=== PATIENT | female | born 1960 | race Caucasian/White ===

== ENCOUNTER → 2018-02-12 14:18 | Outpatient (CLI) | payer OTHER, SELFPAY ==
[2018-02-12 11:55] VITALS: BMI 27.3
[2018-02-12 15:18] LABS: Bacteria 0 SEEN /hpf (None Seen)
[2018-02-12 15:37] LABS: Color, Urine Yellow (Yellow); Glucose, Dipstick Normal (Normal); Ketone-Dipstick Negative (Negative); Leukocyte Esterase-Dipstick 25 /ul (Negative); Nitrite-Dipstick Negative (Negative); Occult Blood-Urine 10 /ul (Negative); Protein-Dipstick Negative (Negative); Specific Gravity, Urine 1.015 (1.002-1.030); Urine Bilirubin Dipstick Negative (Negative); Urine Clarity Clear (Clear); Urine Urobilinogen Normal (Normal)
[2018-02-12 16:10] LABS: Mucous, Urine 4+ /hpf (<or=2+)
[2018-02-12 16:15] LABS: Hyaline Cast 10-25 SEEN /lpf (0-5)
[2018-02-12 16:17] LABS: Squamous Epithelial Cells - UA 0-5 SEEN /hpf (5-10); White Blood Cells 0-5 SEEN /hpf (0-5)
[2018-02-12 16:18] LABS: Red Blood Cells-Urine 0-5 SEEN /hpf (0-5); Transitional Epithelial - Ur 0-5 SEEN /hpf (0-5)
== END ==
PROVIDERS: Family Provider Family Medicine; PCP Family Medicine; Referring Provider Physician Assistant; Visit Provider Physician Assistant
DX: R19.7 Diarrhea, unspecified (principal)
CPT/HCPCS: 81001; 87086

== ENCOUNTER → 2018-08-05 | Outpatient (CLI) | payer BC, SELFPAY ==
[2018-08-05 10:19] VITALS: BMI 27.3
[2018-08-05 12:26] LABS: Absolute Lymphocyte Count 2.34 X10^3/ul (0.83-4.51); Absolute Neutrophil Count 2.4 X10^3/uL (2.0-7.7); Basophil# 0.01 X10^3/uL; Basophil% 0.2 % (0-1); Eosinophil# 0.06 X10^3/uL; Eosinophils% 1.1 % (0-5); Hematocrit 37.9 % (37-47); Hemoglobin 12.5 g/dl (12.0-15.0); Lymphocyte # 2.34 X10^3/ul (4.0); Lymphocyte % 43.3 % (19-41); Mean Corpuscular Hgb 29.4 pg (27.0-32.0); Mean Corpuscular Volume 89.2 fL (81-99); Mean Platelet Vol. 10.4 fl (6.2-12.0); Monocyte# 0.59 X10^3/uL; Monocyte% 10.9 % (0-10); Neutrophil # 2.41 X10^3/uL (2.7-7.7); Neutrophil % 44.5 % (47-70); Platelet Count 231 K/mm3 (150-450); RBC Distribution Width SD 45.3 fl (35.1-43.9); Red Blood Count 4.25 M/mm3 (4.2-5.4); White Blood Count 5.4 K/mm3 (4.4-11.0)
[2018-08-05 12:35] LABS: POSITIVE COUNT NO; POSITIVE DIFFERENTIAL NO; POSITIVE MORPHOLOGY NO
[2018-08-05 12:46] LABS: ALB/GLOB Ratio 1.1 RATIO (0.9-2.4); AST(SGOT) 14 U/L (15-37); Alanine Aminotransfer ALT/SGPT 23 U/L (13-56); Albumin, Serum 3.9 g/dL (3.2-5.0); Alkaline Phosphatase 51 U/L (45-117); Anion Gap 4 (5-15); BUN 14 mg/dL (7-18); Calcium,Total 8.6 mg/dL (8.5-10.1); Chloride 109 mmol/L (98-107); Cholesterol 196 mg/dL (200); EST Glomerular Filtration Rate 92 mL/min (>60); Est Glom Filt Rate - Afr Amer 111 mL/min (>60); Globulin 3.4 g/dL (2.2-4.2); Glucose 99 mg/dL (74-106); High Density Lipoprotein 50 mg/dL; Potassium 3.4 mmol/L (3.5-5.1); Protein, Total 7.3 g/dL (6.4-8.2); Sodium Level 141 mmol/L (136-145); Triglycerides 88 mg/dL; Very Low Density Lipoprotein 18 mg/dL (5-40)
[2018-08-05 12:50] LABS: Hemoglobin A1c 6.1 % (4.2-6.3)
[2018-08-05 13:24] LABS: Thyroid Stim Hormone (TSH) 3.32 uIU/mL (0.358-3.74)
== END | disposition home or self-care (01) ==
LOC: BIMLAB 10:49
PROVIDERS: Family Provider Family Medicine; PCP Family Medicine; Visit Provider Nurse Practitioner Family
DX: I10 Essential (primary) hypertension (principal); Z13.0 Encounter for screening for diseases of the blood and blood-forming organs and certain disorders involving the immune mechanism
CPT/HCPCS: 36415; 80053; 80061; 83036; 84443; 85025; 86376; 86800

== ENCOUNTER → 2018-12-02 | Outpatient (CLI) | payer BC, SELFPAY ==
[2018-12-02 09:39] VITALS: BMI 27.3
--- NOTE | 2018-12-02 11:34 | EKG12_ITS ---
Test Reason : ROUTINE Blood Pressure : / mmHG Vent. Rate : 065 BPM Atrial Rate : 065 BPM P-R Int : 164 ms QRS Dur : 076 ms QT Int : 412 ms P-R-T Axes : 059 059 058 degrees QTc Int : 428 ms Normal sinus rhythm Normal ECG Confirmed by DANIEL PAYAN, STACI ([id number]), multimedia editor EVA BULLARD ([id number]) on 12/04/2018 10:59:42 AM Referred By: Andrey Sanches Confirmed By:STACI SANCHEZ MD
--- NOTE | 2018-12-02 11:45 | RAD_ITS ---
STUDY: X-RAY - CERVICAL SPINE REASON FOR EXAM: Female, 58 years old. Right shoulder pain with tingling down the right arm. TECHNIQUE: 2 view(s) of the cervical spine were obtained. COMPARISON: None FINDINGS: There are degenerative changes of the anterior atlantoaxial articulation. Normal odontoid process. There is reversal of the normal cervical lordosis. There is multi-level endplate spondylosis. There is multi-level degenerative disc disease with multilevel disc space narrowing. This is more significant at C5-C6. There is minimal retrolisthesis of C5 in relation to C6 (1.2 mm). There is associated posterior osteophytosis at C5-C6. There is minimal wedging of C5 vertebral body anteriorly which may be due to old fracture. There is nonspecific bilateral apophyseal hypertrophic changes. The soft tissue structures are unremarkable. No acute fracture seen. RAD/Cerv Spine 2 or 3 Views IMPRESSION: Degenerative disease as described above. Electronically Signed: Sharona Aguilar MD at 0:57 EDT , Service support ,
[2018-12-02 14:28] LABS: Mean Corp Hgb Conc 32.6 g/dL (32-36); Mean Corpuscular Volume 92.3 fL (81-99); Mean Platelet Vol. 10.4 fl (6.2-12.0); Platelet Count 239 K/mm3 (150-450); RBC Distribution Width CV 13.2 % (11.6-14.6); RBC Distribution Width SD 44.2 fl (35.1-43.9); Red Blood Count 4.66 M/mm3 (4.2-5.4); White Blood Count 7.5 K/mm3 (4.4-11.0)
[2018-12-02 14:49] LABS: Anion Gap 6 (5-15); BUN 17 mg/dL (7-18); BUN/Creat Ratio 23.6 RATIO (10-20); Chloride 104 mmol/L (98-107); Creatinine, Serum 0.72 mg/dL (0.55-1.02); EST Glomerular Filtration Rate 89 mL/min (>60); Est Glom Filt Rate - Afr Amer 107 mL/min (>60); Glucose 109 mg/dL (74-106); Magnesium 2.5 mg/dL (1.6-2.6); Potassium 3.9 mmol/L (3.5-5.1); Sodium Level 138 mmol/L (136-145)
== END | disposition home or self-care (01) ==
PROVIDERS: Family Provider Family Medicine; PCP Family Medicine; Referring Provider Nurse Practitioner Family; Visit Provider Nurse Practitioner Family
DX: R55 Syncope and collapse (principal); M54.12 Radiculopathy, cervical region; R01.1 Cardiac murmur, unspecified
CPT/HCPCS: 36415; 72040; 80048; 83735; 85027; 93005

== ENCOUNTER → 2018-12-21 | Outpatient (CLI) | payer BC, SELFPAY ==
[2018-12-02 09:39] VITALS: BMI 27.3
--- NOTE | 2018-12-21 13:04 | ECHOD_ITS ---
Reason For Study: MURMUR Procedure This was a 2D Doppler, Color Flow transthoracic echocardiogram. Exam performed in department. Left Ventricle Normal LV size. Left ventricular systolic function is normal. The estimated ejection fraction is 60 %. Stage 2 diastolic dysfunction. No regional wall motion abnormalities noted. Right Ventricle Normal RV size. Normal systolic function. Atria Normal left atrium. Normal right atrium. Mitral Valve Normal mitral valve. Tricuspid Valve Normal tricuspid valve. Aortic Valve Normal aortic valve. Trisinus/trileaflet aortic valve. Pulmonic Valve Normal pulmonic valve. Great Vessels Normal aortic root. The pulmonary artery is normal size. Normal inferior vena cava. Pericardium/Pleural No pericardial effusion. MMode/2D Measurements & Calculations LVIDd: 4.3 cm IVSd: 0.83 cm LVOT diam: 2.0 cm LVIDs: 2.6 cm LVPWd: 0.87 cm LVOT area: 3.2 cm2 RVDd: 3.1 cm FS: 38.9 % Ao root diam: 2.6 cm LAV(MOD-bp): 60.7 ml LA A4 area: 19.2 cm2 LAV(MOD-bp) Indexed: 34.7 ml/m2 LAV(MOD-sp2): 57.7 ml LAV(MOD-sp4): 58.8 ml LA dimension(2D): 3.2 cm RA A4 area: 11.2 cm2 Time Measurements MV dec time: 0.20 sec Doppler Measurements & Calculations MV E max sreekanth: 104.9 cm/sec Lat Peak E' Sreekanth: 9.2 cm/sec Med Peak E' Sreekanth: 10.6 cm/sec MV A max sreekanth: 106.1 cm/sec E/E' lat: 11.4 E/E' med: 9.9 MV E/A: 0.99 Ao V2 max: 227.4 cm/sec LV V1 max: 137.7 cm/sec SV(LVOT): 97.1 ml Ao max P.7 mmHg LV V1 max P.6 mmHg Ao V2 mean: 150.3 cm/sec LV V1 mean P.3 mmHg Ao mean P.2 mmHg LV V1 mean: 99.2 cm/sec Ao V2 VTI: 45.3 cm LV V1 VTI: 30.0 cm MAKSIM(I,D): 2.1 cm2 MAKSIM(V,D): 2.0 cm2 PA V2 max: 110.4 cm/sec Interpretation Summary Normal LV size. Left ventricular systolic function is normal. The estimated ejection fraction is 60 %. Stage 2 diastolic dysfunction. Structurally normal valves. Ordering Physician: Andrey Sanches Referring Physician: Alberto Galeana Performed By: Hazel Steele RDCS, RVT
== END | disposition home or self-care (01) ==
PROVIDERS: Family Provider Family Medicine; PCP Family Medicine; Referring Provider Nurse Practitioner Family; Visit Provider Nurse Practitioner Family
DX: R01.1 Cardiac murmur, unspecified (principal); R55 Syncope and collapse
CPT/HCPCS: 93306

== ENCOUNTER 2018-12-30 13:18 | Outpatient (RCR) | payer BC, SELFPAY ==
[2018-12-02 09:39] VITALS: BMI 27.3
== END 2019-01-09 23:59 ==
LOC: DC 13:18
PROVIDERS: Family Provider Family Medicine; PCP Family Medicine; Visit Provider Nurse Practitioner Family
DX: Z71.3 Dietary counseling and surveillance (principal); E11.9 Type 2 diabetes mellitus without complications
CPT/HCPCS: 97802

== ENCOUNTER → 2019-01-22 12:21 | Outpatient (CLI) | payer BC, SELFPAY ==
[2019-01-05 11:28] VITALS: BMI 27.3
--- NOTE | 2019-01-22 12:23 | MRI_ITS ---
STUDY: MRI CERVICAL SPINE WITHOUT CONTRAST REASON FOR EXAM: Female, 58 years old. Neck pain, left arm pain and radiculopathy. TECHNIQUE: Standardized fat and water weighted pulse sequences were obtained in the sagittal and axial planes. COMPARISON: X-ray 12/02/2018 FINDINGS: Normal foramen magnum and brainstem-cervical cord junction. Normal craniovertebral junction. Normal anterior atlantoaxial articulation. Normal odontoid process. There is straightening of the normal cervical lordosis. Normal vertebral bodies and posterior osseous elements. C2-3: Normal endplates. Normal disc height, signal and morphology. Normal central canal and intervertebral neural foramina. C3-4: Normal endplates. Normal disc height, signal and morphology. Normal central canal and intervertebral neural foramina. C4-5: Normal endplates. Normal disc height, signal and morphology. Normal central canal and intervertebral neural foramina. C5-6: Mild broad disc osteophyte complex and focal kyphosis produces mild spinal stenosis and mild bilateral neural foraminal stenosis. C6-7: Moderate bilobed disc osteophyte complex produces moderate spinal stenosis with near abutment of the spinal cord and bilateral neural foraminal stenosis. C7-T1: Normal endplates. Normal disc height, signal and morphology. Normal central canal and intervertebral neural foramina. Normal cervical cord. Normal visualized soft tissue structures. MRI/Spine Cervical (Routine) IMPRESSION: Multilevel degenerative changes, as described above. Electronically Signed: Gilbert Herring MD at 16:40 EST Tel , Service support ,
== END ==
PROVIDERS: Family Provider Family Medicine; PCP Family Medicine; Referring Provider Family Medicine; Visit Provider Family Medicine
DX: M54.12 Radiculopathy, cervical region (principal)
CPT/HCPCS: 72141

== ENCOUNTER 2019-02-25 14:06 | Outpatient (RCR) | payer BC, SELFPAY ==
[2019-01-05 11:28] VITALS: BMI 27.3
== END 2019-02-25 23:59 | disposition home or self-care (01) ==
LOC: DC 14:06
PROVIDERS: Family Provider Family Medicine; PCP Family Medicine; Visit Provider Nurse Practitioner Family
DX: Z71.3 Dietary counseling and surveillance (principal); E11.9 Type 2 diabetes mellitus without complications
CPT/HCPCS: 97803

== ENCOUNTER → 2020-09-28 14:33 | Outpatient (CLI) | payer BC, SELFPAY ==
[2020-09-28 15:59] LABS: ALB/GLOB Ratio 1.1 RATIO (0.9-2.4); AST(SGOT) 15 U/L (15-37); Alanine Aminotransfer ALT/SGPT 26 U/L (13-56); Albumin, Serum 4.2 g/dL (3.2-5.0); Alkaline Phosphatase 64 U/L (45-117); Anion Gap 3 (5-15); BUN 10 mg/dL (7-18); BUN/Creat Ratio 15.8 RATIO (10-20); Calcium,Total 9.5 mg/dL (8.5-10.1); Chloride 104 mmol/L (98-107); Creatinine, Serum 0.63 mg/dL (0.55-1.02); EST Glomerular Filtration Rate 102 mL/min (>60); Est Glom Filt Rate - Afr Amer 124 mL/min (>60); Globulin 3.7 g/dL (2.2-4.2); Glucose 94 mg/dL (74-106); Potassium 3.6 mmol/L (3.5-5.1); Protein, Total 7.9 g/dL (6.4-8.2); Sodium Level 137 mmol/L (136-145)
== END ==
PROVIDERS: PCP Family Medicine; Referring Provider Family Medicine; Visit Provider Family Medicine
DX: I10 Essential (primary) hypertension (principal)
CPT/HCPCS: 36415; 80053

== ENCOUNTER → 2021-09-11 | Outpatient (CLI) | payer BC, SELFPAY ==
[2021-09-11 12:39] LABS: Absolute Lymphocyte Count 5.08 X10^3/uL (0.83-4.51); Basophil# 0.04 X10^3/uL; Basophil% 0.4 % (0-1); Eosinophil# 0.08 X10^3/uL; Eosinophils% 0.7 % (0-5); Hematocrit 39.6 % (37-47); Hemoglobin 13.5 g/dL (12.0-15.0); Lymphocyte # 5.08 X10^3/ul (0.83-4.51); Lymphocyte % 46.1 % (19-41); Mean Corp Hgb Conc 34.1 g/dL (32-36); Mean Corpuscular Hgb 30.2 pg (27.0-32.0); Mean Corpuscular Volume 88.6 fL (81-99); Mean Platelet Vol. 10.2 fl (6.2-12.0); Monocyte# 0.76 X10^3/uL; Monocyte% 6.9 % (0-10); NRBC Flagged by Analyzer 0 % (0-5); Neutrophil # 5.04 X10^3/uL (2.7-7.7); Neutrophil % 45.6 % (47-70); POSITIVE DIFFERENTIAL YES; Platelet Count 317 K/mm3 (150-450); RBC Distribution Width CV 12.8 % (11.6-14.6); RBC Distribution Width SD 41.5 fl (35.1-43.9); Red Blood Count 4.47 M/mm3 (4.2-5.4)
[2021-09-11 12:42] LABS: Differential Indicated SCAN CRITERIA MET
[2021-09-11 13:07] LABS: Hemoglobin A1c 6.1 % (3.8-5.6)
[2021-09-11 13:14] LABS: Differential Comment SCANNED
[2021-09-11 13:16] LABS: AST(SGOT) 13 U/L (15-37); Alanine Aminotransfer ALT/SGPT 27 U/L (13-56); Albumin, Serum 3.7 g/dL (3.2-5.0); Alkaline Phosphatase 58 U/L (45-117); Anion Gap 4 (5-15); BUN 10 mg/dL (7-18); BUN/Creat Ratio 13.3 RATIO (10-20); Calcium,Total 9.4 mg/dL (8.5-10.1); Chloride 106 mmol/L (98-107); Cholesterol 218 mg/dL (200); Creatinine, Serum 0.75 mg/dL (0.55-1.02); EST Glomerular Filtration Rate 84 mL/min (>60); Est Glom Filt Rate - Afr Amer 101 mL/min (>60); Globulin 3.7 g/dL (2.2-4.2); Glucose 116 mg/dL (74-106); High Density Lipoprotein 41 mg/dL; Protein, Total 7.4 g/dL (6.4-8.2); Sodium Level 141 mmol/L (136-145); Thyroid Stim Hormone (TSH) 2.13 uIU/mL (0.358-3.74); Triglycerides 130 mg/dL; Very Low Density Lipoprotein 26 mg/dL (5-40)
== END | disposition home or self-care (01) ==
LOC: BIMLAB 10:33
PROVIDERS: PCP Family Medicine; Visit Provider Nurse Practitioner Family
DX: Z00.00 Encounter for general adult medical examination without abnormal findings (principal); R73.03 Prediabetes
CPT/HCPCS: 36415; 80053; 80061; 83036; 84443; 85025

== ENCOUNTER → 2021-10-09 | Outpatient (CLI) | payer BC, SELFPAY ==
--- NOTE | 2021-10-09 12:55 | BI_ITS ---
MAMMOGRAPHY - BILATERAL SCREENING REASON FOR EXAM: Female, 61 years old. Routine annual screening examination. PERTINENT HISTORY: Non-contributory. TECHNIQUE: Digital bilateral breast yong (3D mammographic acquisition) in the CC and MLO projections. 2-D mediolateral oblique (MLO) and craniocaudad (CC) views of both breasts were obtained. CAD: Full Field Digital Mammography with Computer Added Detection was performed. COMPARISON: Comparison is made with prior outside examination dated 10/14/2012. FINDINGS: Breast Composition: The breasts are extremely dense, which lowers the sensitivity of mammography. There are no dominant masses or suspicious calcifications. Interval decrease in size of the previously seen 2 small nodular densities in the central and inferior aspect of the left breast suggestive of a small cyst. Stable small bilateral axillary lymph nodes. No other significant abnormalities are identified. BI/SCRN MAMM (CAD)W/YONG BILAT IMPRESSION: Stable bilateral screening mammogram. Yearly follow-up mammogram recommended. (A) ASSESSMENT CATEGORY: BIRADS Category 2: Benign. A letter regarding these results will be sent to the patient by the facility within 30 days. Approximately 10% of breast cancers are not detected by mammography. A normal mammogram should not delay biopsy of a clinically suspicious abnormality. [id number] Electronically Signed: Jose Antonio Andrea MD at 8:27 EDT ,
--- NOTE | 2021-10-09 12:59 | BD_ITS ---
STUDY: DUAL ENERGY X-RAY ABSORPTIOMETRY / DXA REASON FOR EXAM: Female, 61 years old. SCREENING TECHNIQUE: Bone Mineral Density (BMD) measurements of lumbar spine and bilateral hips were obtained. COMPARISON: None. FINDINGS: Lumbar Spine (L1-L4): g/cm2 (1.124) / T-score (0.8) / Z-score (2.2) Findings are suggestive of normal bone density with a low fracture risk. Left Femur Total: g/cm2 (0.871) / T-score (-0.6) / Z-score (0.4) Left Femoral Neck: g/cm2 (0.771) / T-score (-0.7) / Z-score (0.6) Right Femur Total: g/cm2 (0.878) / T-score (-0.5) / Z-score (0.4) Right Femoral Neck: g/cm2 (0.796) / T-score (-0.5) / Z-score (0.8) BD/Dexa Bone Density Study IMPRESSION: The patient is considered normal as outlined below according to World [employer] Organization (WHO) criteria with a low fracture risk. Reference Information: The T-score is the number of standard deviations above or below the standard which is normal for young adults at their peak bone mineral density. The World Health Organization (WHO) interprets the T-scores as follows: Above -1 Normal bone density Between -1 and -2.5 Osteopenia Equal to / or below -2.5 Osteoporosis As a practical clinical guideline, osteopenia may be graded as follows: Mild -1 through -1.5 Moderate -1.6 through -2.0 Severe -2.1 through -2.4 The Z-score is the number of standard deviations above or below age-matched controls. A Z-score of less than -1.5 would be considered abnormal. References: 1. NIH Osteoporosis and Related Bone Diseases www osteo.org 2. International Society for Clinical Densitometry www iscd.org 3. National Osteoporosis Foundation www nof.org Electronically Signed: Jose Antonio Andrea MD at 13:23 EDT ,
== END | disposition home or self-care (01) ==
LOC: OPBD 12:53
PROVIDERS: PCP Family Medicine; Referring Provider Nurse Practitioner Family; Visit Provider Nurse Practitioner Family
DX: Z78.0 Asymptomatic menopausal state (principal); Z12.31 Encounter for screening mammogram for malignant neoplasm of breast
CPT/HCPCS: 77063; 77067; 77080

== ENCOUNTER → 2022-10-02 | Outpatient (CLI) | payer BC, SELFPAY ==
[2022-10-02 11:19] LABS: Absolute Lymphocyte Count 6.27 X10^3/uL (0.83-4.51); Absolute Neutrophil Count 4.7 X10^3/uL (2.0-7.7); Basophil# 0.05 X10^3/uL; Basophil% 0.4 % (0-1); Eosinophil# 0.07 X10^3/uL; Eosinophils% 0.6 % (0-5); Hemoglobin 12.6 g/dL (12.0-15.0); Lymphocyte # 6.27 X10^3/ul (0.83-4.51); Lymphocyte % 52.8 % (19-41); Mean Corp Hgb Conc 32.3 g/dL (32-36); Mean Corpuscular Hgb 28.6 pg (27.0-32.0); Mean Corpuscular Volume 88.4 fL (81-99); Mean Platelet Vol. 10.4 fl (6.2-12.0); Monocyte# 0.77 X10^3/uL; Monocyte% 6.5 % (0-10); NRBC Flagged by Analyzer 0 % (0-5); Neutrophil # 4.68 X10^3/uL (2.7-7.7); Neutrophil % 39.4 % (47-70); POSITIVE DIFFERENTIAL YES; Platelet Count 232 K/mm3 (150-450); RBC Distribution Width CV 13.2 % (11.6-14.6); RBC Distribution Width SD 43.2 fl (35.1-43.9); Red Blood Count 4.41 M/mm3 (4.2-5.4); White Blood Count 11.9 K/mm3 (4.4-11.0)
[2022-10-02 11:26] LABS: Differential Indicated SCAN CRITERIA MET
[2022-10-02 12:13] LABS: ALB/GLOB Ratio 1.1 RATIO (0.9-2.4); AST(SGOT) 13 U/L (15-37); Alanine Aminotransfer ALT/SGPT 18 U/L (13-56); Albumin, Serum 3.8 g/dL (3.2-5.0); Alkaline Phosphatase 69 U/L (45-117); Anion Gap 4 (5-15); BUN 10 mg/dL (7-18); BUN/Creat Ratio 14.6 RATIO (10-20); Calcium,Total 9.1 mg/dL (8.5-10.1); Chloride 109 mmol/L (98-107); Cholesterol 255 mg/dL (200); Creatinine, Serum 0.68 mg/dL (0.55-1.02); EST Glomerular Filtration Rate 93 mL/min (>60); Est Glom Filt Rate - Afr Amer 112 mL/min (>60); Globulin 3.6 g/dL (2.2-4.2); Glucose 99 mg/dL (74-106); High Density Lipoprotein 51 mg/dL; Potassium 3.9 mmol/L (3.5-5.1); Protein, Total 7.4 g/dL (6.4-8.2); Sodium Level 140 mmol/L (136-145); Thyroid Stim Hormone (TSH) 3.34 uIU/mL (0.358-3.74); Triglycerides 86 mg/dL; Very Low Density Lipoprotein 17 mg/dL (5-40)
== END | disposition home or self-care (01) ==
LOC: LAB 10:52
DX: Z00.00 Encounter for general adult medical examination without abnormal findings (principal)
CPT/HCPCS: 36415; 80053; 80061; 84443; 85025

== ENCOUNTER → 2022-10-16 | Outpatient (CLI) | payer BC, SELFPAY ==
--- NOTE | 2022-10-16 12:20 | BI_ITS ---
MAMMOGRAPHY - BILATERAL SCREENING REASON FOR EXAM: Female, 62 years old. Routine annual screening examination. PERTINENT HISTORY: Non-contributory. TECHNIQUE: Digital bilateral breast yong (3D mammographic acquisition) in the CC and MLO projections. 2-D mediolateral oblique (MLO) and craniocaudad (CC) views of both breasts were obtained. CAD: Full Field Digital Mammography with Computer Added Detection was performed. COMPARISON: Comparison is made with prior study dated October 09, 2021. FINDINGS: Breast Composition: The breasts are extremely dense, which lowers the sensitivity of mammography. There are no dominant masses or suspicious calcifications. Stable small benign appearing bilateral axillary lymph nodes. No other significant abnormalities are identified. There has been no significant change since the prior study. BI/SCRN MAMM (CAD)W/YONG BILAT IMPRESSION: Stable bilateral screening mammogram. Yearly follow-up mammogram recommended. (A) ASSESSMENT CATEGORY: BIRADS Category 2: Benign. A letter regarding these results will be sent to the patient by the facility within 30 days. Approximately 10% of breast cancers are not detected by mammography. A normal mammogram should not delay biopsy of a clinically suspicious abnormality. [id number] Electronically Signed: Jose Antonio Andrea MD at 13:14 EDT ,
== END | disposition home or self-care (01) ==
LOC: OPBI 12:19
PROVIDERS: Referring Provider Nurse Practitioner Family; Visit Provider Nurse Practitioner Family
DX: Z12.31 Encounter for screening mammogram for malignant neoplasm of breast (principal)
CPT/HCPCS: 77063; 77067

== ENCOUNTER → 2024-02-12 | Outpatient (CLI) | payer BC, SELFPAY ==
[2024-02-12 16:33] LABS: Absolute Lymphocyte Count 12.03 X10^3/uL (0.83-4.51); Absolute Neutrophil Count 6.5 X10^3/uL (2.0-7.7); Basophil# 0.04 X10^3/uL; Basophil% 0.2 % (0-1); Eosinophil# 0.13 X10^3/uL; Eosinophils% 0.7 % (0-5); Hematocrit 40.1 % (37-47); Hemoglobin 13.2 g/dL (12.0-15.0); Lymphocyte # 12.03 X10^3/ul (0.83-4.51); Lymphocyte % 61.4 % (19-41); Mean Corp Hgb Conc 32.9 g/dL (32-36); Mean Corpuscular Hgb 28.8 pg (27.0-32.0); Mean Corpuscular Volume 87.4 fL (81-99); Mean Platelet Vol. 9.7 fl (6.2-12.0); Monocyte# 0.83 X10^3/uL; Monocyte% 4.2 % (0-10); NRBC Flagged by Analyzer 0 % (0-5); Neutrophil # 6.52 X10^3/uL (2.7-7.7); Neutrophil % 33.3 % (47-70); POSITIVE DIFFERENTIAL YES; POSITIVE MORPHOLOGY YES; Platelet Count 249 K/mm3 (150-450); RBC Distribution Width CV 12.9 % (11.6-14.6); RBC Distribution Width SD 40.7 fl (35.1-43.9); Red Blood Count 4.59 M/mm3 (4.2-5.4); White Blood Count 19.6 K/mm3 (4.4-11.0)
[2024-02-12 16:39] LABS: Differential Indicated SCAN CRITERIA MET
[2024-02-12 17:04] LABS: Vitamin B12 344 pg/mL (211-911)
[2024-02-12 17:12] LABS: AST(SGOT) 11 U/L (15-37); Alanine Aminotransfer ALT/SGPT 17 U/L (13-56); Albumin, Serum 3.7 g/dL (3.2-5.0); Alkaline Phosphatase 96 U/L (45-117); Anion Gap 6 (5-15); BUN 9 mg/dL (7-18); BUN/Creat Ratio 13.1 RATIO (10-20); Calcium,Total 9.4 mg/dL (8.5-10.1); Chloride 108 mmol/L (98-107); Cholesterol 226 mg/dL (200); Creatinine, Serum 0.69 mg/dL (0.55-1.02); EST Glomerular Filtration Rate 92 mL/min (>60); Est Glom Filt Rate - Afr Amer 111 mL/min (>60); Globulin 3.7 g/dL (2.2-4.2); Glucose 102 mg/dL (74-106); High Density Lipoprotein 43 mg/dL; Potassium 3.9 mmol/L (3.5-5.1); Protein, Total 7.4 g/dL (6.4-8.2); Sodium Level 141 mmol/L (136-145); Triglycerides 179 mg/dL; Very Low Density Lipoprotein 36 mg/dL (5-40)
[2024-02-12 17:30] LABS: Atypical Lymphocyte 1+ %; Platelet Estimate ADEQUATE (ADEQ); Reactive Lymphocyte RARE
[2024-02-12 17:31] LABS: Anisocytosis RARE; Macrocytosis RARE; Ovalocyte RARE; Red Cell Morphology N CHROM NORMAL (NORM C&C)
[2024-02-15 21:06] LABS: Vitamin D 1,25-Dihydroxy 54.8 pg/mL (24.8-81.5)
== END | disposition home or self-care (01) ==
PROVIDERS: Referring Provider Nurse Practitioner Family; Visit Provider Nurse Practitioner Family
DX: I10 Essential (primary) hypertension (principal); E56.9 Vitamin deficiency, unspecified
CPT/HCPCS: 36415; 80053; 80061; 82607; 82652; 84443; 85025

== ENCOUNTER → 2024-03-18 | Outpatient (CLI) | payer BC, SELFPAY ==
[2024-03-18 15:26] LABS: Absolute Lymphocyte Count 14.28 X10^3/uL (0.83-4.51); Absolute Neutrophil Count 3.2 X10^3/uL (2.0-7.7); Basophil# 0.07 X10^3/uL; Basophil% 0.4 % (0-1); Eosinophil# 0.12 X10^3/uL; Eosinophils% 0.7 % (0-5); Hemoglobin 13.1 g/dL (12.0-15.0); Lymphocyte # 14.28 X10^3/ul (0.83-4.51); Lymphocyte % 78.2 % (19-41); Mean Corp Hgb Conc 32.8 g/dL (32-36); Mean Corpuscular Hgb 28.5 pg (27.0-32.0); Mean Corpuscular Volume 87.1 fL (81-99); Mean Platelet Vol. 9.9 fl (6.2-12.0); Monocyte# 0.57 X10^3/uL; Monocyte% 3.1 % (0-10); NRBC Flagged by Analyzer 0 % (0-5); Neutrophil % 17.5 % (47-70); POSITIVE DIFFERENTIAL YES; Platelet Count 222 K/mm3 (150-450); RBC Distribution Width CV 13.7 % (11.6-14.6); RBC Distribution Width SD 43.5 fl (35.1-43.9); Red Blood Count 4.59 M/mm3 (4.2-5.4); White Blood Count 18.3 K/mm3 (4.4-11.0)
[2024-03-18 15:35] LABS: Differential Indicated SCAN CRITERIA MET
[2024-03-18 15:49] LABS: T4 Free Direct 0.78 ng/dL (0.76-1.46)
[2024-03-18 21:08] LABS: Anisocytosis 1+; Atypical Lymphocyte 1+ %; Reactive Lymphocyte 1+
== END | disposition home or self-care (01) ==
LOC: VSLAB 13:59
PROVIDERS: PCP Nurse Practitioner Family
DX: D72.829 Elevated white blood cell count, unspecified (principal); R94.6 Abnormal results of thyroid function studies
CPT/HCPCS: 36415; 84436; 84439; 84443; 85025

== ENCOUNTER → 2024-08-07 | Outpatient (CLI) | payer OTHER, SELFPAY ==
--- OUTSIDE RECORDS SUMMARY | 2024-08-07 08:08 | XMS RPT_ITS | CCD ---
Author Organization [facility] Care Team Providers Care Pizza Maker Name Role Phone Martinez Galeana Unavailable Jolie Daniels Unavailable Unavailable Unavailable Unavailable Adolfo Jenkins Unavailable Unavailable Adolfo Jenkins Unavailable Unavailable Adolfo Jenkins Unavailable Unavailable Adolfo Jenkins Unavailable Unavailable Martinez Galeana Primary Care Provider Jolie Daniels Unavailable aMrtinez Galeana Primary Care Provider Jolie Daniels Unavailable Martinez Galeana DO Primary Care Provider Frances JOLLY DO WJarrell Don Unavailable [phone] Frances JOLLY DO W. Don Unavailable MARTINEZ GALEANA Admitting Unavailable CLAUDIA LANCE Attending Unavailabl e MARTINEZ GALEANA Primary Care Unavailable DIAZ TIRADO Attending Unavailable DIAZ TIRADO Admitting Unavailable MARTINEZ GALEANA Primary Care Unavailable LEILANI CUTLER Attending Unava ilable LEILANI CUTLER Admitting Unava ilable MARTINEZ GALEANA Primary Care Unavailable Dr. Martinez Galeana Primary Care Provider Dr. Martinez Galeana Referring Provider [phone] Myron JOINT FINISHER, FINA-C Alli Attending Provider Martinez Galeana DO Primary Care Provider MARTINEZ GALEANA Primary Care Unavailable Frances JOLLY DO, W. Don Unavailable [phone] Alli Sanches CNP Primary Care Provider TOD MONZON Attending Unavailable MYRON, ALLI Primary Care Unavailable TOD MONZON Admitting Unavailable MYRON, ALLI Primary Care Unavailable TOD MONZON Referring Unavailable Myron, Alli Primary Care Unavailable Assessment, Health Risk Referring Unavaila ble Assessment, Health Risk Attending Unavaila ble Tod Monzon Referring Unavailable Tod Monzon Attending Unavailable Myron, Alli Primary Care Unavailable Amrit Cunningham Attending Unavailable Myron, Alli Primary Care Unavailable Medical [place], Keyla Singh Referring Unavailable Stefanie Bravo Attending Unavailable Myron, Alli Primary Care Unavailable Myron, Alli Referring Unavailable Myron, Alli Attending Unavailable Medical [place], Keyla Singh Primary Care Unavailable Myron, Alli Primary Care Unavailable Beam VSCToy Attending Unavailable Medications Current Medications Medication Drug Class(es) Dates Sig (Normalized) Sig (Original) [id number] 200 actuat albuterol 0.09 mg/actuat metered dose inhaler (1 source) beta2-Adrenergic Agonist Start: 01-31-2017 take 2 puff(s) by inhalation every four hours as needed albuterol HFA (PROAIR HFA) 90 mcg/actuation inhaler Indications: Acute bronchitis, unspecified organism , Wheezing Inhale 2 Puffs as instructed every 4 hours as needed. 1 Inhaler 01/31/2017 Active amoxicillin 875 mg / clavulanate 125 mg oral tablet (4 sources) Penicillin-class Antibacterial Start: 09-14-2021 take 1 tablet by mouth twice daily Amoxicillin-Pot Clavulanate Active 1 TABLET PO TWICE A DAY September 14, 2021 12:00am benzonatate 200 mg oral capsule (1 source) Non-narcotic Antitussive Start: 01-31-2017 take 1 capsule by mouth three times daily as needed Benzonatate 200 mg capsule Indications: Acute bronchitis, unspecified organism Take 1 capsule by mouth three times daily as needed. 30 capsule 01/31/2017 Active hydroCHLOROthiazide 12.5 mg / lisinopril 10 mg oral tablet (20 sources) Thiazide Diuretic, Angiotensin Converting Enzyme Inhibitor Start: 06-29-2018 take 10-12.5 mg by mouth once lisinopriL-hydro chlorothiazide (PRINZIDE,ZESTOR ETIC) 10-12.5 mg per tablet Take 1 tablet by mouth daily Morning . 12/23/2020 Active Start: 10-01-2017 End: 09-11-2021 take 1 tablet by mouth once daily Lisinopril-Hydrochlorothiazide Discontin ued 1 TABLET PO DAILY February 29, 2020 10:56am September 28, 2020 2:24pm ibuprofen 600 mg oral tablet (5 sources) Nonsteroidal Anti-inflammatory Drug Start: 04-09-2021 End: 05-09-2021 take 1 tablet by mouth every six hours as needed for pain ibuprofen (ADVIL,MOTRIN) 600 MG tablet Take 1 (one) tablet (600 mg total) by mouth every 6 (six) hours as needed for pain . 30 tablet 0 04/09/2021 05/09/2021 Active Start: 11-19-2017 End: 02-12-2018 take 600 mg by mouth three times daily Ibuprofen Discontinued 600 MG PO THREE TIMES A DAY November 19, 2017 12:00am February 12, 2018 12:54pm meloxicam 15 mg oral tablet (1 source) Nonsteroidal Anti-inflammatory Drug Start: 07-19-2024 End: 07-19-2025 take 1 tablet by mouth once daily meloxicam (MOBIC) 15 MG tablet Take 1 (one) tablet (15 mg total) by mouth daily . 30 tablet 11 07/19/2024 07/19/2025 Active nitrofurantoin, macrocrystals 25 mg / nitrofurantoin, monohydrate 75 mg oral capsule (5 sources) Nitrofuran Antibacterial Start: 01-13-2024 End: 01-18-2024 take 1 capsule by mouth twice daily nitrofurantoin monohydrate and macrocrystal (MACROBID) 100 mg capsule Indications: Acute cystitis without hematuria Take 1 capsule by mouth two times a day for 5 days. 10 capsule 01/13/2024 01/18/2024 Active Start: 02-12-2018 End: 08-05-2018 take 1 capsule by mouth twice daily at mealtime Nitrofurantoin Monohyd/M-Cryst (Macrobid) 100 mg capsule Discontinued 100 MG PO TWICE A DAY February 12, 2018 1:00am August 05, 2018 10:17am must administer with a meal/food predniSONE 50 mg oral tablet (1 source) Start: 07-19-2024 take 1 tablet by mouth once daily predniSONE (DELTASONE) 50 MG tablet Take 1 (one) tablet (50 mg total) by mouth daily . 5 tablet 07/19/2024 Active sertraline 50 mg oral tablet (20 sources) Serotonin Reuptake Inhibitor Start: 09-29-2020 End: 09-11-2021 take 1 tablet by mouth once daily sertraline (ZOLOFT) 50 MG tablet Take 50 mg by mouth daily Morning . 12/29/2020 Active Start: 06-03-2017 End: 10-01-2017 take 2 tablets by mouth once daily Sertraline (Zoloft) 25 mg tablet Discontinued 50 MG PO daily June 03, 2017 12:00am October 01, 2017 10:51am Start: 06-03-2017 End: 09-28-2020 take 50 mg by mouth once daily Sertraline Discontinued 50 MG PO DAILY February 15, 2020 9:22am September 28, 2020 2:09pm Completed/Discontinued Medications Medication Drug Class(es) Dates Sig (Normalized) Sig (Original) acetaminophen with codeine (TYLENOL-CODEINE #4 ORAL) (1 source) End: 5 acetaminophen with codeine (TYLENOL-CODEINE #4 ORAL) Take by mouth . 07/19/2024 Discontinued (Patient's Request) aspirin 81 mg delayed release oral tablet (9 sources) Platelet Aggregation Inhibitor, Nonsteroidal Anti-inflammatory Drug Start: 9 End: 5 take 1 tablet by mouth once daily aspirin 81 MG EC tablet Take 81 mg by mouth daily Morning . 01/05/2019 07/19/2024 Discontinued (Discontinued by another clinician) azithromycin 250 mg oral tablet (4 sources) Macrolide Antimicrobial Start: 9 End: 9 Azithromycin Discontinued 250 MG PO daily February 12, 2018 1:00am August 05, 2018 10:17am 2 tablets today, then 1 tablet daily on days 2 through 11 cyclobenzaprine hydrochloride 10 mg oral tablet (4 sources) Muscle Relaxant Start: 8 End: 9 take 5-10 mg by mouth three times daily Cyclobenzaprine Discontinued 5 - 10 MG PO THREE TIMES A DAY November 19, 2017 12:00am February 12, 2018 12:54pm doxycycline hyclate 50 mg oral tablet (4 sources) Tetracycline-class Drug Start: 8 End: 9 take 50 mg by mouth twice daily Doxycycline Hyclate Discontinued 50 MG PO TWICE A DAY June 03, 2017 12:00am February 12, 2018 12:54pm lisinopril 2.5 mg oral tablet (4 sources) Angiotensin Converting Enzyme Inhibitor End: 2 take 1 tablet by mouth once daily lisinopril (PRINIVIL,ZESTRIL) 2.5 MG tablet Take 2.5 mg by mouth daily . 0 03/02/2021 Discontinued (Duplicate order) methylPREDNISolone 4 mg oral tablet (4 sources) Corticosteroid Start: 9 End: 9 take 1 tablet by mouth once Methylprednisolone (Medrol (Cornelius)) 4 mg tablets,dose pack Discontinued 0 PO per package directions December 02, 2018 12:00am January 05, 2019 12:27pm PO PER PKG DIR 1 ml triamcinolone acetonide 40 mg/ml injection (1 source) Corticosteroid Start: 0 End: 0 triamcinolone acetonide (KENALOG-40) injection 40 mg Problems Active Problems Problem Classification Problem Date Documented Da te Episodic/Chronic Anxiety disorders (2 sources) Mixed anxiety and depressive disorder; Translations: [Anxiety disorder, unspecified] Onset: 04-04-2021 04-04-2021 Chronic Chronic obstructive pulmonary disease and bronchiectasis (4 sources) Bronchitis; Translations: [Bronchitis, not specified as acute or chronic] 02-12-2018 Episodic Diseases of white blood cells (1 source) Elevated white blood cell count, unspecified; Translations: [Elevated white blood cell count, unspecified] Onset: 04-02-2024 Chronic Essential hypertension (12 sources) Essential hypertension; Translations: [Hypertensive disorder] Onset: 03-02-2019 03-02-2019 Chronic Genitourinary symptoms and ill-defined conditions (4 sources) Female stress incontinence; Translations: [Stress incontinence (female) (male)] Onset: 03-26-2021 Chronic Genitourinary symptoms and ill-defined conditions (5 sources) Increased frequency of urination; Translations: [Frequency of micturition] 02-12-2018 Episodic Joint disorders and dislocations; trauma-related (1 source) Acetabular labrum tear 07-21-2024 Chronic Menopausal disorders (1 source) Menorrhagia; Translations: [Excessive bleeding in the premenopausal period] Onset: 07-29-2011 07-29-2011 Chronic Mood disorders (4 sources) Depressive disorder; Translations: [Depression] 11-25-2017 Chronic Other aftercare (1 source) Postoperative visit; Translations: [Encounter for other specified surgical aftercare] Episodic Other connective tissue disease (1 source) Trigger thumb of left hand; Translations: [Trigger finger of left thumb] Other gastrointestinal disorders (4 sources) Diarrhea; Translations: [Diarrhea, unspecified] 12-24-2021 Episodic Other nervous system disorders (4 sources) Carpal tunnel syndrome; Translations: [Carpal tunnel syndrome, unspecified upper limb] 11-25-2017 Chronic Other screening for suspected conditions (not mental disorders or infectious disease) (2 sources) Patient encounter status; Translations: [Encounter for screening for malignant neoplasm of colon] 12-24-2021 Episodic Other upper respiratory infections (4 sources) Sinusitis; Translations: [Chronic sinusitis, unspecified] 02-12-2018 Chronic Other upper respiratory infections (2 sources) Acute sinusitis, unspecified; Translations: [Acute sinusitis, unspecified] Episodic Residual codes; unclassified (2 sources) Pain, unspecified; Translations: [Pain, unspecified] Onset: 07-19-2024 Episodic Spondylosis; intervertebral disc disorders; other back problems (5 sources) Cervical spondylosis without myelopathy; Translations: [Cervical disc prolapse with radiculopathy] Onset: 03-02-2019 03-02-2019 Chronic Sprains and strains (4 sources) Acetabular labrum tear; Translations: [Other sprain of right hip, initial encounter] Onset: 07-19-2024 07-19-2024 Episodic Urinary tract infections (1 source) Acute cystitis; Translations: [Acute cystitis without hematuria] 01-13-2024 Episodic Viral infection (2 sources) COVID-19; Translations: [Other specified viral infection] Episodic Past or Other Problems Problem Classification Problem Date Documented Da te Episodic/Chronic Spondylosis; intervertebral disc disorders; other back problems (7 sources) Cervical disc prolapse with radiculopathy; Translations: [Cervical disc disorder with radiculopathy, unspecified cervical region] Onset: 03-02-2019 03-02-2019 Episodic Unclassified (4 sources) NECK/BACK PAIN 09-05-2021 Results Test Name Value Interpretation Reference Range Facil ity XR HIP RIGHT 2-3 VIEWS (ROUT INE)on 07-19-2024 XR HIP RIGHT 2-3 VIEWS (ROUTINE) EXAMINATION: XR HIP RIGHT 2-3 VIEWS (ROUTINE) 07/19/2024 8:32 am HISTORY: ORDERING SYSTEM PROVIDED HISTORY: Pain, TECHNOLOGIST PROVIDED HISTORY: Illness/Other Reason for exam: Right groin pain x 6 months. No injury. Cancer History: u Surgery, RadiationHistory: u Encounter Type: Initial Additional signs and symptoms: none ORDERING SYSTEM PROVIDED DIAGNOSIS CODES: R52 Pain COMPARISON: None FINDINGS: BONES: No fracture, acute abnormality, or significant arthropathy. SOFT TISSUES: No visible soft tissue swelling or radiopaque foreign body. EFFUSION: None visible. OTHER: Negative. IMPRESSION: No acute abnormality Workstation ID: [id number] Dictated by: KIA RICHARDSON on FriJul 21, 2024 8:16:06 AM EDT Transcribed by: KIA RICHARDSON on FriJul 21, 2024 8:16:06 AM EDT Finalized by: KIA RICHARDSON on FriJul 21, 2024 8:16:06 AM EDT Normal [facility] Comment on above: Order Comment: Injur y/Trauma or Illness?:Illness/Other How long have you had these symptoms (acute/chronic)?:Acute Reason for exam?:Right groin pain x 6 months. No injury. History of cancer?:u Surgeries, chemotherapy, or radiation?:u Type of Exam?:Initial Additional signs and symptoms?:none XR LUMBAR SPINE STANDARD WIT H FLEX/EXT 4+ VIEWSon 07-19-2024 XR LUMBAR SPINE STANDARD WITH FLEX/EXT 4+ VIEWS EXAMINATION: XR LUMBAR SPINE STANDARD WITH FLEX/EXT 4+ VIEWS 07/19/2024 8:32 am HISTORY: ORDERING SYSTEM PROVIDED HISTORY: Pain, TECHNOLOGIST PROVIDED HISTORY: Illness/Other Reason for exam: Lower back pain that radiates down the right leg x 6 months. No injury. Cancer History: u Surgery, RadiationHistory: u Encounter Type: Initial Additional signs and symptoms: none ORDERING SYSTEM PROVIDED DIAGNOSIS CODES: R52 Pain COMPARISON: None FINDINGS: BONES: Neutral projection demonstrates normal alignment with no acute fracture or spondylolisthesis. Mild spondylosis. Dwdc-ly-cxftndpl facet osteoarthropathy DISC SPACES: No significant disc height narrowing, subluxation, or endplate abnormality. PARASPINOUS:No paraspinous abnormality is seen. OTHER: No dynamic instability IMPRESSION: Degenerative changes with no dynamic instability Workstation ID: [id number] Dictated by: KIA RICHARDSON on FriJul 21, 2024 8:16:59 AM EDT Transcribed by: KIA RICHARDSON on FriJul 21, 2024 8:16:59 AM EDT Finalized by: KIA RICHARDSON on FriJul 21, 2024 8:16:59 AM EDT Normal [facility] Comment on above: Order Comment: Injur y/Trauma or Illness?:Illness/Other How long have you had these symptoms (acute/chronic)?:Acute Reason for exam?:Lower back pain that radiates down the right leg x 6 months. No injury. History of cancer?:u Surgeries, chemotherapy, or radiation?:u Type of Exam?:Initial Additional signs and symptoms?:none Mumps Antibody,IgGon 025 MUMPS Ab, IgG > 300.0 Normal Immune >10.9 [facility] Comment on above: Result Comment: Nega tive <9.0 Equivocal 9.0 - 10.9 Positive >10.9 A positive result generally indicates past exposure to Mumps virus or previous vaccination. Performed By: #### L 501.7420, L500.4050, L100.0100, L500.4100, L3300.0960, L503.0105 #### [facility] [address] [place], [address] [facility] EMP Rubeola Titeron 04-0 RUBEOLA Ab, IgG > 300.0 Normal Immune >16.4 [facility] Comment on above: Result Comment: Nega tive <13.5 Equivocal 13.5 - 16.4 Positive >16.4 Presence of antibodies to Rubeola is presumptive evidence of immunity except when acute infection is suspected. Performed at: [facility] [id number] Systems Management Consultant: Yves Jolley PhD, Phone: [phone] Performed By: #### L [id number], L500.4050, L100.0100, L500.4100, L3300.0960, L503.0105 #### [facility] [address] [place], [address] [id number] 05-11-2024 HEP B Surf Ab Non-Reactive Normal [facility] Comment on above: Result Comment: <8.5 mIU/mL: Non-Reactive 8.5<= x <11.5 mIU/mL: Indeterminate >=11.5 mIU/mL: Reactive Non Reactive: Inconsistent with immunity less than <10 mIU/mL Reactive: Consistent with immunity greater than or equal to 10 mIU/mL Performed By: #### L [id number], L500.4050, L100.0100, L500.4100, L3300.0960, L503.0105 #### [facility] [address] [place], [address] L509.4006on 05-11-2024 Rubella IgG REAC Normal Nonreactive [facility] Comment on above: Result Comment: Anti body Result: Interpretation Non-Reactive: Non-Immune Reactive: Immune The following results were obtained with the [employer] Rubella IgG assay. Results from assays of other manufacturers cannot be used interchangeably. Performed By: #### L [id number], L500.4050, L100.0100, L500.4100, L3300.0960, L503.0105 #### [facility] [address] [place], [address] CBC W/Diff, Automatedon 02-0 Anisocytosis Ql (Bld) 1+ Normal [facility] Comment on above: Performed By: #### L 501.9310, L506.0400, L501.9520, L100.0100 #### [facility] [address] [place], [address] ATYPICAL LYMPH 1+ Normal [facility] Comment on above: Performed By: #### L 501.9310, L506.0400, L501.9520, L100.0100 #### [facility] [address] [place], [address] REACTIVE LYMPH 1+ Normal [facility] Comment on above: Performed By: #### L 501.9310, L506.0400, L501.9520, L100.0100 #### [facility] [address] [place], [address] Plastic Surgery Visit Report on 03-18-2024 Plastic Surgery Visit Report [facility] [address] [place] [address] OFFICE VISIT Date of Service: 03/18/24 MR#: [id number] Acct: [id number] Name: TRENA RODRÍGUEZ Rep #: [id number] : 1960 Provider: Dr. Amrit Cunningham MD Age/Sex: 63/F Location: [facility] Status: Signed Intake Vital Signs 12/24/21 08:35 03/18/24 15:26 Height 5 ft 5 in 5 ft 5 in Weight: 147 lb BMI 24.4 BP 143/87 H Blood Pressure Location Rt brachial Position Sitting Respiration 18 Pulse 83 Pulse Source Monitor Temp 98.0 F Temp Source Oral Pulse Oximetry (%) 98 Oxygen Delivery Method room air Intake Visit Reasons: DUPUYTRENS L HAND Chief Complaint: L hand pain Is patient in pain?: No Allergies No Known Allergies Allergy (Verified 03/18/24 15:03) Medications ???Medication ???Instructions ???Recorded ???Confirmed ???Type aspirin 81 mg tablet,delayed 81 mg PO DAILY 01/05/19 03/18/24 H istory release lisinopril 10 1 tab PO DAILY #90 tabs 09/11/21 0 03/18/24 Rx mg-hydrochlorothiaz carlos 12.5 mg tablet PFSH Medical History Arthritis Encounter for preventative adult health care examination NECK/BACK PAIN Fatigue Elevated blood pressure reading H/O emotional problems Surgical History S/P LASIK surgery of both eyes Family History Mother Arthritis Heart disease Hypertension Kidney disease Grandfather Myocardial infarction Other Diabetes Social History Smoking Status: Never smoker alcohol intake: current alcohol intake frequency: holidays/special occasions only substance use type: does not use what type of physical activity do you participate in: none HPI DUPUYTRENS L HAND Details: Trena Rodríguez is a delightful 63-year-old female who presents for evaluation of a Dupuytren's cord that she has noticed on the long finger bilaterally in the palm, worse on the left side. She reports that it has been developing over time, and that she does not demonstrate any finger contractures at the moment. She does not have any disease on her feet. No triggering. No history of surgery on her hand. ROS General General: Yes good health; No fatigue, fever(s) or weight loss HENMT HENMT: No rhinitis, sore throat/mouth sore, nasal congestion, contacts or glaucoma Endo Endocrine: No thyroid disease, polydipsia, heat intolerance, cold intolerance, hepatitis or excessive urine Skin Skin: No Bleeding, bruising, changing moles or suspicious lesion Musc Musculoskeletal: Yes joint pain; No joint stiffness, muscle weakness, back pain, osteoarthritis or Muscle aches/ myalgia Neuro Neurological: No headache(s), No lightheadedness and No numbness Cardio Cardiovascular: No chest pain, pacemaker, fatigue or shortness of breat with exertion Psych Psychiatric: No depression, claustrophobia or anxiety Resp Respiratory: No spitting up, shortness of breath, sleep apnea, asthma, emphysema, TB, Cough or Smoker Gastro Gastrointestinal: No diarrhea, constipation, blood in stool, nausea, vomiting or abdominal bloating Ant Hematologic: No anemia, No bleeding and No abnormal bleeding Genitourinary: No urinary frequency, blood in urine or incontinence Exam Details PE: Bilateral upper extremities Exam of the left upper limb revealed: ([-]) tenderness to palpation over A1 kristie region of left long finger. ([-]) reproducible triggering of [ ] finger. ([-]) Table Top test. ([+]) pretendinous cord visible and palpable over left long finger. (0) degree of flexion contracture of PIPJ of left long finger (0) degree of flexion contracture of MCPJ of left long finger Exam of the [ ] upper limb revealed: ([-]) tenderness to palpation over A1 kristie region of right long finger ([-]) reproducible triggering of right long finger (-) Table Top test. ([+]) pretendinous cord visible and palpable over [ ]. (0) degree of flexion contracture of PIPJ of right long finger (0) degree of flexion contracture of MCPJ of right long finger RADIOLOGY: X-Rays deferred Coding Level of Care Code Off vis,est,level 3 Diagnoses Essential hypertension I10 Hypertension type: essential hypertension Dupuytren contracture of both hands M72.0 Assessment and Plan (No Qualifiers) Assessment and Plan (1) Hypertension: Status: Chronic Comment: This patient is has well controlled blood pressure on her current medications. (2) Dupuytren contracture of both hands: Status: Acute Comment: Palpable pretendinous cords over the long finger on both hands in the palm (more content not included)... Normal [facility] T4 Free Directon 03-18-2024 T4 FREE DIRECT 0.78 ng/dL Normal 0.76-1.46 [facility] Comment on above: Order Comment: N Performed By: #### L 501.9310, L506.0400, L501.9520, L100.0100 #### [facility] [address] [place], [place], [id number] T4 Total, Thyroxinon 025 T4 [Mass/Vol] 6.0 ug/dL Normal 4.8-13.9 [facility] Comment on above: Performed By: #### L 501.9310, L506.0400, L501.9520, L100.0100 #### [facility] [address] [place], [address] Thyroid Stim Hormone (TSH)on 03-18-2024 TSH 3.490 uIU/mL Normal 0.358-3.740 [facility] Comment on above: Performed By: #### L 501.9310, L506.0400, L501.9520, L100.0100 #### [facility] [address] [place], [address] Vitamin D 1,25-Dihydroxyon 0 02-15-2024 VIT D 1,25 DIHY 54.8 pg/mL Normal 24.8-81.5 [facility] Comment on above: Result Comment: Perf ormed at: [facility] [id number] Systems Management Consultant: Ivan King MD, Phone: [phone] Performed By: #### L [id number], L500.4050, L100.0100, L500.4100, L3300.0960, L503.0105 #### [facility] [address] [place], [address] CBC W/Diff, Automatedon Anisocytosis Ql (Bld) RARE Normal [facility] Comment on above: Performed By: #### L 501.9520, L500.4050, L100.0100, L500.4100, L3300.0960, L503.0105 #### [facility] [address] [place], [address] MACROCYTOSIS RARE Normal [facility] Comment on above: Performed By: #### L 501.9520, L500.4050, L100.0100, L500.4100, L3300.0960, L503.0105 #### [facility] [address] [place], [address] OVALOCYTE RARE Normal [facility] Comment on above: Performed By: #### L 501.9520, L500.4050, L100.0100, L500.4100, L3300.0960, L503.0105 #### [facility] [address] [place], [address] RED CELL MORPH N CHROM Normal NORM C C [facility] Comment on above: Performed By: #### L 501.9520, L500.4050, L100.0100, L500.4100, L3300.0960, L503.0105 #### [facility] [address] [place], [address] ATYPICAL LYMPH 1+ Normal [facility] Comment on above: Performed By: #### L 501.9520, L500.4050, L100.0100, L500.4100, L3300.0960, L503.0105 #### [facility] [address] [place], [address] PLT EST ADEQUATE Normal ADEQ [facility] Comment on above: Performed By: #### L 501.9520, L500.4050, L100.0100, L500.4100, L3300.0960, L503.0105 #### [facility] [address] [place], [address] REACTIVE LYMPH RARE Normal [facility] Comment on above: Performed By: #### L 501.9520, L500.4050, L100.0100, L500.4100, L3300.0960, L503.0105 #### [facility] [address] [place], [address] SMEAR COMMENT SEE COMMENT Normal [facility] Comment on above: Result Comment: LYMP HOCYTOSIS NOTED Performed By: #### L 501.9520, L500.4050, L100.0100, L500.4100, L3300.0960, L503.0105 #### [facility] [address] [place], [address] Comprehensive Metabolic Prof ilon 02-12-2024 Albumin [Mass/Vol] 3.7 g/dL Normal 3.2-5.0 [facility] Comment on above: Performed By: #### L 501.9520, L500.4050, L100.0100, L500.4100, L3300.0960, L503.0105 #### [facility] [address] [place], [address] Albumin/Globulin [Mass ratio] 1.0 {ratio} Normal 0.9-2.4 [facility] Comment on above: Performed By: #### L 501.9520, L500.4050, L100.0100, L500.4100, L3300.0960, L503.0105 #### [facility] [address] [place], [address] ALK P 96 U/L Normal 45-117 [facility] Comment on above: Performed By: #### L 501.9520, L500.4050, L100.0100, L500.4100, L3300.0960, L503.0105 #### [facility] [address] [place], [address] ALT [Catalytic activity/Vol] 17 U/L Normal 13-56 [facility] Comment on above: Performed By: #### L 501.9520, L500.4050, L100.0100, L500.4100, L3300.0960, L503.0105 #### [facility] [address] [place], [address] AST [Catalytic activity/Vol] 11 U/L Low 15-37 [facility] Comment on above: Performed By: #### L 501.9520, L500.4050, L100.0100, L500.4100, L3300.0960, L503.0105 #### [facility] [address] [place], [address] Bilirubin [Mass/Vol] 0.50 mg/dL Normal 0.20-1.00 [facility] Comment on above: Result Comment: For patients on eltrombopag therapy, use of Dimension [place] TBIL is not recommended. Performed By: #### L 501.9520, L500.4050, L100.0100, L500.4100, L3300.0960, L503.0105 #### [facility] [address] [place], [address] BUN/CRE 13.1 RATIO Normal 10-20 [facility] Comment on above: Performed By: #### L 501.9520, L500.4050, L100.0100, L500.4100, L3300.0960, L503.0105 #### [facility] [address] [place], [address] CA,Total 9.4 mg/dL Normal 8.5-10.1 [facility] Comment on above: Performed By: #### L 501.9520, L500.4050, L100.0100, L500.4100, L3300.0960, L503.0105 #### [facility] [address] [place], [address] Chloride [Moles/Vol] 108 mmol/L High 98-107 [facility] Comment on above: Performed By: #### L 501.9520, L500.4050, L100.0100, L500.4100, L3300.0960, L503.0105 #### [facility] [address] [place], [address] CO2 [Moles/Vol] 27.0 mmol/L Normal 21.0-32.0 [facility] Comment on above: Performed By: #### L 501.9520, L500.4050, L100.0100, L500.4100, L3300.0960, L503.0105 #### [facility] [address] [place], [address] Creatinine [Mass/Vol] 0.69 mg/dL Normal 0.55-1.02 [facility] Comment on above: Result Comment: The validity of the calculated GFR GFRAA in patients over 70 years has not been determined. Clinical correlation is essential. Performed By: #### L 501.9520, L500.4050, L100.0100, L500.4100, L3300.0960, L503.0105 #### [facility] [address] [place], [address] EST GFR - AA 111 mL/min Normal >60 [facility] Comment on above: Result Comment: Afri can Marshallese GFR Calc Performed By: #### L 501.9520, L500.4050, L100.0100, L500.4100, L3300.0960, L503.0105 #### [facility] [address] [place], [address] GAP 6 Normal 5-15 [facility] Comment on above: Performed By: #### L 501.9520, L500.4050, L100.0100, L500.4100, L3300.0960, L503.0105 #### [facility] [address] [place], [address] GFR/1.73 sq M.predicted among non-blacks MDRD (S/P/Bld) [Vol rate/Area] 92 mL/min/{1.73_m2} Normal >60 [facility] Comment on above: Result Comment: Non- GFR Calc Performed By: #### L 501.9520, L500.4050, L100.0100, L500.4100, L3300.0960, L503.0105 #### [facility] [address] [place], [address] Globulin (S) [Mass/Vol] 3.7 g/dL Normal 2.2-4.2 [facility] Comment on above: Performed By: #### L 501.9520, L500.4050, L100.0100, L500.4100, L3300.0960, L503.0105 #### [facility] [address] [place], [address] Glucose [Mass/Vol] 102 mg/dL Normal 74-106 [facility] Comment on above: Result Comment: Fast ing Glucose result from 100 to 125 mg/dL suggests IMPAIRED HOMEOSTASIS per A.D.A. criteria. Performed By: #### L 501.9520, L500.4050, L100.0100, L500.4100, L3300.0960, L503.0105 #### [facility] [address] [place], [address] Potassium [Moles/Vol] 3.9 mmol/L Normal 3.5-5.1 [facility] Comment on above: Performed By: #### L 501.9520, L500.4050, L100.0100, L500.4100, L3300.0960, L503.0105 #### [facility] [address] [place], [address] Sodium [Moles/Vol] 141 mmol/L Normal 136-145 [facility] Comment on above: Performed By: #### L 501.9520, L500.4050, L100.0100, L500.4100, L3300.0960, L503.0105 #### [facility] [address] [place], [address] T PROT 7.4 g/dL Normal 6.4-8.2 [facility] Comment on above: Performed By: #### L 501.9520, L500.4050, L100.0100, L500.4100, L3300.0960, L503.0105 #### [facility] [address] [place], [address] Urea nitrogen [Mass/Vol] 9 mg/dL Normal 7-18 [facility] Comment on above: Performed By: #### L 501.9520, L500.4050, L100.0100, L500.4100, L3300.0960, L503.0105 #### [facility] [address] [place], [address] Lipid Profileon 02-12-2024 Cholesterol [Mass/Vol] 226 mg/dL High 200 [facility] Comment on above: Result Comment: <200 mg/dL Desirable 200-240 mg/dL Borderline >240 mg/dL High Risk Performed By: #### L 501.9520, L500.4050, L100.0100, L500.4100, L3300.0960, L503.0105 #### [facility] [address] [place], [address] Cholesterol in HDL [Mass/Vol] 43 mg/dL Normal [facility] Comment on above: Result Comment: The drugs N-Acetylcysteine and Metamizole may falsely depress this assay. Reference Range HDL <40 mg/dL Low HDL Cholesterol HDL >or= 60 mg/dL High HDL Cholesterol Performed By: #### L 501.9520, L500.4050, L100.0100, L500.4100, L3300.0960, L503.0105 #### [facility] [address] [place], [address] Cholesterol in LDL [Mass/Vol] 147 mg/dL High 0-130 [facility] Comment on above: Performed By: #### L 501.9520, L500.4050, L100.0100, L500.4100, L3300.0960, L503.0105 #### [facility] [address] [place], [address] Cholesterol in VLDL [Mass/Vol] 36 mg/dL Normal 5-40 [facility] Comment on above: Performed By: #### L 501.9520, L500.4050, L100.0100, L500.4100, L3300.0960, L503.0105 #### [facility] [address] [place], [address] Triglyceride [Mass/Vol] 179 mg/dL Normal [facility] Comment on above: Result Comment: The drugs N-Acetylcysteine and Metamizole may falsely depress this assay. Serum Triglycerides Reference Interval Normal <150 mg/dL Borderline high 150 - 199 mg/dL High 200 - 499 mg/dL Very High > or = 500 mg/dL Performed By: #### L 501.9520, L500.4050, L100.0100, L500.4100, L3300.0960, L503.0105 #### [facility] [address] [place], [place], [address] Thyroid Stim Hormone (TSH)on 02-12-2024 TSH 4.900 uIU/mL High 0.358-3.740 [facility] Comment on above: Performed By: #### L 501.9520, L500.4050, L100.0100, L500.4100, L3300.0960, L503.0105 #### [facility] [address] [place], [place], [address] Vitamin B12on 02-12-2024 Cobalamin (Vitamin B12) [Mass/Vol] 344 pg/mL Normal 211-911 [facility] Comment on above: Performed By: #### L 501.9520, L500.4050, L100.0100, L500.4100, L3300.0960, L503.0105 #### [facility] [address] [place], [place], [address] CNOVon 01-13-2024 CNOV Office Visit (UCTR) ---- TRENA RODRÍGUEZ ([id number]) 1960 F Date Time Provider Department 01/13/24 5:45 PM ROSA MARIA KERR [facility] During your visit today, we recorded the following information about you: Temperature Pulse Respiration Blood pressure 96.9 degrees 70/minute 16/minute 142/90 Weight 64.1 kg Rosa Maria Kerr APRN.CNP 01/13/2024 5:52 PM Signed CC: Patient presents with: Urinary Frequency: burning with urination x 4 days HPI Trena Rodríguez is a 63 year old female who presents with complaint of possible UTI. These symptoms have been present for 4 days. Associated symptoms: burning, frequency, and pressure Denies: fever, chills, sweats, abdominal pain, and flank pain Treatments: azo The ROS was otherwise negative. PMH, Medications, labs, allergies, and recent past visits with PCP were reviewed and updated as able. 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 MEDICATIONS lisinopril-hydrochl orothiazide (SINDHU,DANNY C) 10-12.5 mg per tablet Take 1 tablet by mouth once daily. Benzonatate 200 mg capsule Take 1 capsule by mouth three times daily as needed. (Patient not taking: Reported on 09/29/2018 ) albuterol HFA (PROAIR HFA) 90 mcg/actuation inhaler Inhale 2 Puffs as instructed every 4 hours as needed. (Patient not taking: Reported on 09/29/2018 ) FAMILY HISTORY Problem Relation Age of Onset Diabetes Mother Diabetes Maternal Grandmother Hypertension Mother Social History Tobacco Use Smoking status: Never Smokeless tobacco: Never Substance Use Topics Alcohol use: Yes Comment: occasional Drug use: No ASSESSMENT/PLAN: 1. Urinary frequency - ICD9: 788.41, ICD10: R35.0 (primary diagnosis) - UA DIP, URINE (POC) - URINE CULTURE 2. Acute cystitis without hematuria - ICD9: 595.0, ICD10: N30.00 - NITROFURANTOIN MONOHYDRATE AND MACROCRYSTAL 100 MG ORAL CAP Prescription instructions reviewed with patient as applicable. Potential red flag symptoms discussed with the patient. Reviewed appropriate action plan to take if red flag symptoms occur. Patient agreeable to treatment plan. Rosa Maria Kerr APRN.CROP NUTRITION SCIENTIST Allergies As of Date: 01/13/2024 (No Known Allergies) Date Reviewed: 01/13/2024 Reviewed by: Fely Muller MA - Fully Assessed Reason for Visit: Urinary Frequency [1086] Cmt: burning with urination x 4 days Primary Visit Diagnosis:Urinary frequency [R35.0] Other Visit Diagnosis:Acute cystitis without hematuria [N30.00] Order(s):UA DIP, URINE (POC) [2579703] Order #: [id number]. #:[id number] URINE CULTURE [SQURCUL] Order #: [id number]. #:[id number] nitrofurantoin monohydrate and macrocrystal (MACROBID) 100 mg capsuleTake 1 capsule by mouth two times a day for 5 days.Disp: 10 capsuleRfl: 0 Prescriptions as of 01/13/2024 - nitrofurantoin monohydrate and macrocrystal (MACROBID) 100 mg capsule Take 1 capsule by mouth two times a day for 5 days. - lisinopril-hydrochl orothiazide (PRINZIDE,ZESTORETI C) 10-12.5 mg per tablet Take 1 tablet by mouth once daily. - Benzonatate 200 mg capsule Take 1 capsule by mouth three times daily as needed. - albuterol HFA (PROAIR HFA) 90 mcg/actuation inhaler Inhale 2 Puffs as instructed every 4 hours as needed. Problem List As Of Date 01/13/2024 Noted Resolved Premenopausal menorrhagia [N92.4] 07/29/2011 Prescriptions ordered this encounter Disp Refills Start End NITROFURANTOIN MONOHYDRATE AND MACROCR* 10 c* 0 01/13/2024 01/18/2024 Route: ORAL Sig: Take 1 capsule by mouth two times a day for 5 days. Letter Text Encounter Status:Closed by ROSA MARIA KERR on 01/13/24 Normal [facility] UA DIP, URINE (POC)on 2023 BILIRUBIN UA (POCT) Negative Negative [facility] CLARITY UA (POCT) Clear [facility] COLOR UA (POCT) [place] [facility] GLUCOSE UA (POCT) Negative Negative mg/dL [facility] Hemoglobin Ql (U) Small Abnormal Negative [facility] Interpretation and review of laboratory results Abnormal [facility] KETONE UA (POCT) Negative Negative mg/dL [facility] LEUKOCYTES UA (POCT) Trace Abnormal Negative [facility] NITRITE UA (POCT) Positive Abnormal Negative [facility] PH UA (POCT) 5.0 4.5 - 8.0 [facility] Protein Ql (U) 30 mg/dL Abnormal Negative [facility] SPECIFIC GRAVITY UA (POCT) 1.020 1.005 - 1.030 [facility] UROBILINOGEN UA (POCT) 1.0 Normal E.U./d L [facility] Location:Formerly [facility], [address] [place] [address], [place], [place], [id number] [place] [address] POINT OF CARE [facility] Absolute lymphocyte countOrd ered By: [facility] on 10-02-2022 Lymphocytes Auto (Unsp spec) [#/Vol] 6.27 10*3/uL 0.83-4.51 [facility] Basophil percentageOrdered B y: [facility] on 10-02-2022 Basophils/100 WBC (Bld) 0.4 % 0-1 [facility] Bilirubin [Mass/Vol] 0.60 mg/dL 0.20-1.00 [facility] Comment on above: For patients on eltr ombopag therapy, use of Dimension [place] TBIL is not recommended. Chloride [Moles/Vol] 109 mmol/L 98-107 [facility] Cholesterol [Mass/Vol] 255 mg/dL <200 [facility] Comment on above: <200 mg/dL Desirable 200-240 mg/dL Borderline >240 mg/dL High Risk Eosinophils/100 WBC (Bld) 0.6 % 0-5 [facility] Glucose [Mass/Vol] 99 mg/dL 74-106 [facility] Neutrophils (Bld) [#/Vol] 4.7 10*3/uL 2.0-7.7 [facility] Neutrophils/100 WBC (Bld) 39.4 % 47-70 [facility] Potassium [Moles/Vol] 3.9 mmol/L 3.5-5.1 [facility] Protein [Mass/Vol] 7.4 g/dL 6.4-8.2 [facility] Sodium [Moles/Vol] 140 mmol/L 136-145 [facility] Triglyceride [Mass/Vol] 86 mg/dL <199 [facility] Comment on above: The drugs N-Acetylcy steine and Metamizole may falsely depress this assay.Serum Triglycerides Reference Interval Normal <150 mg/dL Borderline high 150 - 199 mg/dL High 200 - 499 mg/dL Very High > or = 500 mg/dL WBC (Bld) [#/Vol] 11.9 10*3/uL 4.4-11.0 [facility] Blood erythrocytes count (nu mber/volume)Ordered By: [facility] on 10-02-2022 RBC (Bld) [#/Vol] 4.41 10*6/uL 4.2-5.4 [facility] Blood hemoglobin measurement (mass/volume)Ordered By: [facility] on 10-02-2022 Hemoglobin (Bld) [Mass/Vol] 12.6 g/dL 12.0-15.0 [facility] Blood lymphocytes/100 leukoc ytesOrdered By: [facility] on 10-02-2022 Lymphocytes/100 WBC (Bld) 52.8 % 19-41 [facility] Blood manual differential co mment interpretation (narrative result)Ordered By: [facility] on 10-02-2022 Manual differential comment Tom (Bld) [Interp] COMMENT [facility] Comment on above: LYMPHOCYTOSIS. Blood monocytes/100 leukocyt esOrdered By: [facility] on 10-02-2022 Monocytes/100 WBC (Bld) 6.5 % 0-10 [facility] Blood platelet mean volumeOr dered By: [facility] on 10-02-2022 Platelet mean volume (Bld) [Entitic vol] 10.4 fL 6.2-12.0 [facility] Determination of erythrocyte mean corpuscular volume (MCV)Ordered By: [facility] on 10-02-2022 MCV (RBC) [Entitic vol] 88.4 fL 81-99 [facility] Hematocrit Auto (Bld) [Volum e fraction]Ordered By: [facility] on 10-02-2022 Hematocrit (Bld) [Volume fraction] 39.0 % 37-47 [facility] - Chemistry and C hemistry - challengeOrdered By: [facility] on 10-02-2022 ALP [Catalytic activity/Vol] 69 U/L 45-117 [facility] ALT [Catalytic activity/Vol] 18 U/L 13-56 [facility] CO2 [Moles/Vol] 27.0 mmol/L 21.0-32.0 [facility] Globulin (S) [Mass/Vol] 3.6 g/dL 2.2-4.2 [facility] Urea nitrogen/Creatinine [Mass ratio] 14.6 mg/mg 10-20 [facility] - Hematology and Cell countsOrdered By: [facility] on 10-02-2022 Erythrocyte distribution width (RBC) [Entitic vol] 43.2 fL 35.1-43.9 [facility] Erythrocyte distribution width (RBC) [Ratio] 13.2 % 11.6-14.6 [facility] Immature granulocytes/100 WBC (Bld) 0.300 % 0.0-0.9 [facility] Comment on above: IG% - Immature Granu locytes (promyelocytes, myelocytes and metamyelocytes) > 1% indicates that a LEFT SHIFT is Present. MCH (RBC) [Entitic mass] 28.6 pg 27.0-32.0 [facility] Nucleated RBC/100 WBC (Bld) [Ratio] 0 % 0-5 [facility] MCHC Auto (RBC) [Mass/Vol]Or dered By: [facility] on 10-02-2022 MCHC (RBC) [Mass/Vol] 32.3 g/dL 32-36 [facility] No Panel InformationOrdered By: [facility] on 10-02-2022 Estimated GFR (MDRD) Amer 112 mL/min >60 [facility] Comment on above: GFR Calc Estimated GFR (MDRD) Non-Af Amer 93 mL/min >60 [facility] Comment on above: Non- GFR Calc Thyroid Stimulating Hormone (TSH) 3.34 uIU/mL 0.358-3.74 [facility] Platelets bldOrdered By: MILAGRO HERMOSILLO on 10-02-2022 Platelets (Bld) [#/Vol] 232 10*3/uL 150-450 [facility] Serum or plasma albumin sander urement (mass/volume)Ordered By: [facility] on 10-02-2022 Albumin [Mass/Vol] 3.8 g/dL 3.2-5.0 [facility] Serum or plasma albumin/glob ulin mass ratioOrdered By: [facility] on 10-02-2022 Albumin/Globulin [Mass ratio] 1.1 {ratio} 0.9-2.4 [facility] Serum or plasma calcium sander urement (mass/volume)Ordered By: [facility] on 10-02-2022 Calcium [Mass/Vol] 9.1 mg/dL 8.5-10.1 [facility] Serum or plasma cholesterol in HDL measurement (mass/volume)Ordered By: [facility] on 10-02-2022 Cholesterol in HDL [Mass/Vol] 51 mg/dL >40 [facility] Comment on above: The drugs N-Acetylcy steine and Metamizole may falsely depress this assay. Reference Range HDL <40 mg/dL Low HDL Cholesterol HDL >or= 60 mg/dL High HDL Cholesterol Serum or plasma cholesterol in VLDL measurement (mass/volume)Ordered By: [facility] on 10-02-2022 Cholesterol in VLDL [Mass/Vol] 17 mg/dL 5-40 [facility] Serum or plasma creatinine m easurement (mass/volume)Ordered By: [facility] on 10-02-2022 Creatinine [Mass/Vol] 0.68 mg/dL 0.55-1.02 [facility] Comment on above: The validity of the calculated GFR & GFRAA in patients over 70 years has not been determined. Clinical correlation is essential. Serum or plasma low density lipoprotein (LDL) cholesterol measurement (mass/volume)Ordered By: [facility] on 10-02-2022 Cholesterol in LDL [Mass/Vol] 187 mg/dL 0-130 [facility] Serum or plasma urea nitroge n measurement (mass/volume)Ordered By: [facility] on 10-02-2022 Urea nitrogen [Mass/Vol] 10 mg/dL 7-18 [facility] Thin prep Papanicolaou smear with manual screeningOrdered By: [facility] on 10-02-2022 Thin prep Papanicolaou smear with manual screening 13 U/L 15-37 [facility] Thin prep Papanicolaou smear with manual screening 4 5-15 [facility] Absolute lymphocyte counton 09-11-2021 Lymphocytes Auto (Unsp spec) [#/Vol] 5.08 10*3/uL 0.83-4.51 [facility] Work Phone: Basophil percentageon 2021 Basophils/100 WBC (Bld) 0.4 % 0-1 [facility] Work Phone: Bilirubin [Mass/Vol] 0.30 mg/dL 0.20-1.00 [facility] Work Phone: Comment on above: For patients on eltr ombopag therapy, use of Dimension [place] TBIL is not recommended. Chloride [Moles/Vol] 106 mmol/L 98-107 [facility] Work Phone: Cholesterol [Mass/Vol] 218 mg/dL <200 [facility] Work Phone: Comment on above: <200 mg/dL Desirable 200-240 mg/dL Borderline >240 mg/dL High Risk Eosinophils/100 WBC (Bld) 0.7 % 0-5 [facility] Work Phone: Glucose [Mass/Vol] 116 mg/dL 74-106 [facility] Work Phone: Comment on above: Fasting Glucose resu lt from 100 to 125 mg/dL suggests IMPAIRED HOMEOSTASIS per A.D.A. criteria. Neutrophils (Bld) [#/Vol] 5.0 10*3/uL 2.0-7.7 [facility] Work Phone: Neutrophils/100 WBC (Bld) 45.6 % 47-70 [facility] Work Phone: Potassium [Moles/Vol] 4.0 mmol/L 3.5-5.1 [facility] Work Phone: Protein [Mass/Vol] 7.4 g/dL 6.4-8.2 [facility] Work Phone: Sodium [Moles/Vol] 141 mmol/L 136-145 [facility] Work Phone: Triglyceride [Mass/Vol] 130 mg/dL <199 [facility] Work Phone: Comment on above: The drugs N-Acetylcy steine and Metamizole may falsely depress this assay.Serum Triglycerides Reference Interval Normal <150 mg/dL Borderline high 150 - 199 mg/dL High 200 - 499 mg/dL Very High > or = 500 mg/dL WBC (Bld) [#/Vol] 11.0 10*3/uL 4.4-11.0 [facility] Work Phone: Blood erythrocytes count (nu mber/volume)on 09-11-2021 RBC (Bld) [#/Vol] 4.47 10*6/uL 4.2-5.4 [facility] Work Phone: Blood hemoglobin measurement (mass/volume)on 09-11-2021 Hemoglobin (Bld) [Mass/Vol] 13.5 g/dL 12.0-15.0 [facility] Work Phone: Blood lymphocytes/100 leukoc yteson 09-11-2021 Lymphocytes/100 WBC (Bld) 46.1 % 19-41 [facility] Work Phone: Blood manual differential co mment interpretation (narrative result)on 09-11-2021 Manual differential comment Tom (Bld) [Interp] SCANNED [facility] Work Phone: Blood monocytes/100 leukocyt eson 09-11-2021 Monocytes/100 WBC (Bld) 6.9 % 0-10 [facility] Work Phone: Blood platelet mean volumeon 09-11-2021 Platelet mean volume (Bld) [Entitic vol] 10.2 fL 6.2-12.0 [facility] Work Phone: Determination of erythrocyte mean corpuscular volume (MCV)on 09-11-2021 MCV (RBC) [Entitic vol] 88.6 fL 81-99 [facility] Work Phone: Hematocrit Auto (Bld) [Volum e fraction]on 09-11-2021 Hematocrit (Bld) [Volume fraction] 39.6 % 37-47 [facility] Work Phone: Laboratory - Chemistry and C hemistry - challengeon 09-11-2021 ALP [Catalytic activity/Vol] 58 U/L 45-117 [facility] Work Phone: ALT [Catalytic activity/Vol] 27 U/L 13-56 [facility] Work Phone: CO2 [Moles/Vol] 31.0 mmol/L 21.0-32.0 [facility] Work Phone: Globulin (S) [Mass/Vol] 3.7 g/dL 2.2-4.2 [facility] Work Phone: Urea nitrogen/Creatinine [Mass ratio] 13.3 mg/mg 10-20 [facility] Work Phone: Laboratory - Hematology and Cell countson 09-11-2021 Erythrocyte distribution width (RBC) [Entitic vol] 41.5 fL 35.1-43.9 [facility] Work Phone: Erythrocyte distribution width (RBC) [Ratio] 12.8 % 11.6-14.6 [facility] Work Phone: Immature granulocytes/100 WBC (Bld) 0.300 % 0.0-0.9 [facility] [facility] Work Phone: Comment on above: IG% - Immature Granu locytes (promyelocytes, myelocytes and metamyelocytes) > 1% indicates that a LEFT SHIFT is Present. MCH (RBC) [Entitic mass] 30.2 pg 27.0-32.0 [facility] Work Phone: Nucleated RBC/100 WBC (Bld) [Ratio] 0 % 0-5 [facility] Work Phone: MCHC Auto (RBC) [Mass/Vol]on 09-11-2021 MCHC (RBC) [Mass/Vol] 34.1 g/dL 32-36 [facility] No Panel Informationon 09-11 Estimated GFR (MDRD) Amer 101 mL/min >60 [facility] Work Phone: Comment on above: GFR Calc Estimated GFR (MDRD) Non-Af Amer 84 mL/min >60 [facility] Work Phone: Comment on above: Non- GFR Calc Thyroid Stimulating Hormone (TSH) 2.13 uIU/mL 0.358-3.74 [facility] Work Phone: Platelets bldon 09-11-2021 Platelets (Bld) [#/Vol] 317 10*3/uL 150-450 [facility] Work Phone: Serum or plasma albumin sander urement (mass/volume)on 09-11-2021 Albumin [Mass/Vol] 3.7 g/dL 3.2-5.0 [facility] Work Phone: Serum or plasma albumin/glob ulin mass ratioon 09-11-2021 Albumin/Globulin [Mass ratio] 1.0 {ratio} 0.9-2.4 [facility] Work Phone: Serum or plasma calcium sander urement (mass/volume)on 09-11-2021 Calcium [Mass/Vol] 9.4 mg/dL 8.5-10.1 [facility] Work Phone: Serum or plasma cholesterol in HDL measurement (mass/volume)on 09-11-2021 Cholesterol in HDL [Mass/Vol] 41 mg/dL >40 [facility] Work Phone: Comment on above: The drugs N-Acetylcy steine and Metamizole may falsely depress this assay. Reference Range HDL <40 mg/dL Low HDL Cholesterol HDL >or= 60 mg/dL High HDL Cholesterol Serum or plasma cholesterol in VLDL measurement (mass/volume)on 09-11-2021 Cholesterol in VLDL [Mass/Vol] 26 mg/dL 5-40 [facility] Work Phone: Serum or plasma creatinine m easurement (mass/volume)on 08-02-2022 Creatinine [Mass/Vol] 0.75 mg/dL 0.55-1.02 [facility] Work Phone: Comment on above: The validity of the calculated GFR & GFRAA in patients over 70 years has not been determined. Clinical correlation is essential. Serum or plasma low density lipoprotein (LDL) cholesterol measurement (mass/volume)on 09-11-2021 Cholesterol in LDL [Mass/Vol] 151 mg/dL 0-130 [facility] Work Phone: Serum or plasma urea nitroge n measurement (mass/volume)on 09-11-2021 Urea nitrogen [Mass/Vol] 10 mg/dL 7-18 [facility] Work Phone: Thin prep Papanicolaou smear with manual screeningon 09-11-2021 Thin prep Papanicolaou smear with manual screening 13 U/L 15-37 [facility] Work Phone: Thin prep Papanicolaou smear with manual screening 4 5-15 [facility] Work Phone: Whole blood hemoglobin A1c/t otal hemoglobin ratio (mass fraction)on 09-11-2021 HbA1c (Bld) [Mass fraction] 6.1 % 3.8-5.6 [facility] Work Phone: Comment on above: Normal < 5.7 % Predi abetic 5.7 - 6.4 % Diabetic >or= 6.5 % Please note range changes. Tendon Sheath Injection: Fle xor Tendon Sheathon 06-23-2019 Tod Monzon CNP 06/24/2019 8:42 AM Tendon Sheath Injection: Flexor Tendon Sheath Performed by: Tod Monzon CNP Authorized by: Tod Monzon CNP Consent given by: Patient Time out: Immediately prior to the procedure a time out was called Physician or proceduralist has discussed critical or nonroutine steps, procedure duration and anticipated blood loss: Yes Indications: Pain and diagnostic evaluation Location: Thumb Laterality: Left Prep: patient was prepped and draped in usual sterile fashion Needle size: 25 G Medications: 40 mg triamcinolone acetonide 40 mg/mL Anesthetic used: Lidocaine 1% Anesthetic amount (mL): 1 Patient tolerance: Patient tolerated the procedure well with no immediate complications [facility] Vital Signs Date Time Vital Sign Value Performing Clinician Facility 07-19-2024 08:16-0400 Body height 166.4 cm Tod Na PERYR Work Phone: [facility] 07-19-2024 08:16-0400 Body mass index (BMI) [Ratio] 22.94 kg/m2 Tod Monzon [employer] N[employer]ITION SCIENTIST Work Phone: [facility] 07-19-2024 08:16-0400 Body weight 63.5 kg Tod Monzon [employer] N[employer]ITION SCIENTIST Work Phone: [facility] Comment on above: stated 01-13-2024 17:46-0500 Body temperature 96.91 [degF] Rosa Maria Kerr APRN.[employer] N[employer]ITION SCIENTIST Work Phone: [facility] 01-13-2024 17:46-0500 Body weight 64.1 kg Rosa Maria Kerr APRN.[employer] SCIENT[employer] Work Phone: [facility] 01-13-2024 17:46-0500 Diastolic blood pressure 90 mm[Hg] Rosa Maria Kerr APRN.[employer] SCIENT[employer] Work Phone: [facility] 01-13-2024 17:46-0500 Heart rate 70 /min Rosa Maria Kerr APRN.[employer] SCI[employer] Work Phone: [facility] 01-13-2024 17:46-0500 Respiratory rate 16 /min Rosa Maria Kerr APRN.[employer] SCIENTIST Work Phone: [facility] 01-13-2024 17:46-0500 SaO2% (BldA) [Mass fraction] 97 % Rosa Maria Kerr APRN.[employer] N[employer]ITION SCIENTIST Work Phone: [facility] 01-13-2024 17:46-0500 Systolic blood pressure 142 mm[Hg] Rosa Maria Kerr APRN.[employer] N[employer]ITION SCIENTIST Work Phone: [facility] 09-11-2021 10:10-0400 Body height 165.[address] Martinez Galeana Work Phone: [facility] Work Phone: 09-11-2021 10:10-0400 Body mass index (BMI) [Ratio] 26.1 kg/m2 Dr. Martinez Galeana Work Phone: [facility] Work Phone: 09-11-2021 10:10-0400 Body temperature 97.8 [degF] Dr. Martinez Galeana Work Phone: [facility] Work Phone: 09-11-2021 10:10-0400 Body weight 71.[address] Martinez Galeana Work Phone: [facility] Work Phone: 09-11-2021 10:10-0400 Diastolic blood pressure 82 mm[Hg] Dr. Martinez Galeana Work Phone: [facility] Work Phone: 09-11-2021 10:10-0400 Heart rate 74 /min Dr. Martinez Galeana Work Phone: [facility] Work Phone: 09-11-2021 10:10-0400 Respiratory rate 12 /min Dr. Martinez Galeana Work Phone: [facility] Work Phone: 09-11-2021 10:10-0400 SaO2% (BldA) [Mass fraction] 98 % Dr. Martinez Galeana Work Phone: [facility] Work Phone: 09-11-2021 10:10-0400 Systolic blood pressure 116 mm[Hg] Dr. Martinez Galeana Work Phone: [facility] Work Phone: 04-25-2021 10:40-0400 Body height 166.4 cm Diaz Tirado MD Work Phone: [facility] 04-25-2021 10:40-0400 Body mass index (BMI) [Ratio] 27.61 kg/m2 Diaz Tirado MD Work Phone: [facility] 04-25-2021 10:40-0400 Body weight 76.43 kg Diaz Tirado MD Work Phone: [facility] 04-25-2021 10:40-0400 Diastolic blood pressure 86 mm[Hg] Diaz Tirado MD Work Phone: [facility] 04-25-2021 10:40-0400 Heart rate 69 /min Diaz Tirado MD Work Phone: [facility] 04-25-2021 10:40-0400 Systolic blood pressure 193 mm[Hg] Diaz Tirado MD Work Phone: [facility] 03-02-2021 13:20-0500 Body height 165.1 cm Diaz Tirado MD Work Phone: [facility] 03-02-2021 13:20-0500 Body mass index (BMI) [Ratio] 27.32 kg/m2 Diaz Tirado MD Work Phone: [facility] 03-02-2021 13:20-0500 Body weight 74.48 kg Diaz Tirado MD Work Phone: [facility] 03-02-2021 13:20-0500 Diastolic blood pressure 86 mm[Hg] Diaz Tirado MD Work Phone: [facility] 03-02-2021 13:20-0500 Systolic blood pressure 156 mm[Hg] Diaz Tirado MD Work Phone: [facility] 06-23-2019 09:18-0400 BMI (Body Mass Index) 26.63 kg/m2 [facility] 06-23-2019 09:18-0400 Body weight 72.58 kg [facility] 06-23-2019 09:18-0400 Height 165.1 cm [facility] 03-02-2019 14:25-0500 BP Diastolic 96 mm[Hg] [facility] 03-02-2019 14:25-0500 BP Systolic 152 mm[Hg] [facility] 03-02-2019 14:25-0500 Pulse (Heart Rate) 73 /min [facility] 03-02-2019 14:25-0500 Pulse Oximetry 97 % [facility] 06-16-2017 12:140400 BP Diastolic 89 mm[Hg] [facility] 06-16-2017 12:14040 BP Systolic 156 mm[Hg] [facility] 06-16-2017 12:14040 Pulse (Heart Rate) 66 /min [facility] 06-16-2017 12:13-0400 BMI (Body Mass Index) 25.76 kg/m2 [facility] 06-16-2017 12:13-0400 Height 165.1 cm [facility] 06-16-2017 12:13-0400 Respiratory Rate 16 /min [facility] 06-16-2017 12:13040 Weight 70.22 kg [facility] Encounters Encounter Date Encounter Type Care Provider Facility Start: 08-07-2024 ambulatory Tod Monzon Facil ty:[facility] Start: 07-19-2024 End: 07[facility] Start: 07-19-2024 End: 07-19-2024 Office outpatient visit 15 minutes Tod Monzon [employer] N[employer]ITION SCIENTIST Work Phone: [facility] Comment on above: Tear of right acetab ular labrum, initial encounter (Primary Dx) Start: 05-11-2024 ambulatory [facility] Facility:[facility] Start: 04-26-2024 ambulatory Stefanie Bravo [facility] Start: 03-18-2024 End: 03-18-2024 ambulatory Amrit Cunningham [facility] Start: 03-18-2024 End: 03-18-2024 ambulatory [facility] Facility:[facility] Start: 02-12-2024 End: 02-12-2024 ambulatory [facility] Facility:[facility] Start: 01-13-2024 End: 01-13-2024 ambulatory MARTINEZ GALEANA Facility:[facility] Start: 01-13-2024 End: 01-13-2024 Patient encounter procedure Rosa Maria Kerr APRN.[employer] N[employer] SCIENTIST Work Phone: [facility] Comment on above: Urinary frequency (P rimary Dx); Acute cystitis without hematuria Start: 10-16-2022 End: 10-16-2022 ambulatory [facility] Work Phone: Start: 10-16-2022 End: 10-16-2022 Patient encounter procedure [facility] Work Phone: Start: 10-02-2022 End: 10-02-2022 ambulatory [facility] Work Phone: Start: 10-02-2022 End: 10-02-2022 Patient encounter procedure [facility] Work Phone: Start: 2021 End: [address] Martinez Galeana Work Phone: [facility] Work Phone: Start: 2021 End: [address] Martinez Galeana Work Phone: [facility] Start: 09-11-[address] Ilene Galeana Work Phone: [facility] Start: 09-11-2021 End: 09-11-2021 Encounter for general adult medical examination without abnormal findings Dr. Martinez Galeana Work Phone: [facility] Start: 09-11-2021 End: 09-11-[address] Martinez Galeana Work Phone: [facility] Start: 07-10-2021 End: 07-10-2021 ambulatory [facility] Start: 04-25-2021 End: 04-25-2021 Postop follow up visit related to original px Diaz Tirado MD Work Phone: [facility] Comment on above: IBAN (stress urinary incontinence, female) (Primary Dx); Postoperative visit Start: 04-09-2021 End: 04-09-2021 ambulatory DIAZ TIRADO [facility] Start: 04-04-2021 Preprocedural examin ation done Diaz Tirado MD Work Phone: [facility] Work Phone: Start: 04-04-2021 End: 04-08-2021 ambulatory MARTINEZ Meza [facility] Start: 03-02-2021 End: 03-02-2021 Office outpatient new 30 minutes Diaz Tirado MD Work Phone: [facility] Comment on above: IBAN (stress urinary incontinence, female) (Primary Dx) Start: 04-19-2020 End: 04-19-2020 Orders Only Sigrid Thayer Work Phone: [facility] Start: 06-23-2019 End: 06-23-2019 Office outpatient new 45 minutes Tod Monzon Work Phone: [facility] Comment on above: Trigger finger of le ft thumb (Primary Dx) Start: 03-02-2019 End: 03-02-2019 Office consultation new/estab patient 40 min Bobby Basilioary Hernandez Work Phone: [facility] Comment on above: Cervical spondylosis without myelopathy (Primary Dx); Herniation of cervical intervertebral disc with radiculopathy; Essential hypertension Start: 06-16-2017 End: 06-16-2017 Office/outpatient visit, new, level 2 Jolie Daniels Work Phone: [facility] Start: 02-07-2017 Ambulatory Adolfo U[facility] ty:[facility] Start: 02-05-2017 Ambulatory Adolfo Umanai ty:[facility] Start: 02-05-2017 End: 02-05-2017 Ambulatory Vlad Jenkins Work Phone: [facility] Procedures Date Procedure Procedure Detail Performing Clinician Start: 01-13-2024 Urnls dip stick/tabl et rgnt auto w/o microscopy Salina Latif APRN.[employer] N[employer] SCIENTIST Work Phone: Start: 10-16-2022 Screening mammography Start: 10-03-2022 Microscopic observat ion [Identifier] in Cervix by Cyto stain Tod Monzon CNP Work Phone: Start: 2021 Dual energy X-ray absorptiometry Dr. Martinez Galeana Work Phone: Start: 2021 End: [address] Martinez Galeaan Work Phone: Start: 06-23-2019 Injection 1 tendon sheath/ligament aponeurosis Tod Monzon Work Phone: Plan of Treatment Date Care Activity Detail Author Start: 2036 Respiratory Syncytia l Virus Immunization: Risk, 60-74 Risk, or 75+ (1 - 1-dose 75+ series) Respiratory Syncytial Virus Immunization: Risk, 60-74 Risk, or 75+ (1 - 1-dose 75+ series) [facility] Start: 2036 RSV Vaccine (1 - 1-d ose 75+ series) RSV Vaccine (1 - 1-dose 75+ series) [facility] Start: 05-11-2034 Tetanus vaccination Tetanus: Every 1 0yrs [facility] Start: 10-04-2027 Screening for malign ant neoplasm of cervix [facility] Start: 10-16-2025 Screening for malign ant neoplasm of colon [facility] Start: 10-03-2025 Screening for malign ant neoplasm of cervix Pap Smear [facility] Start: 10-11-2024 Influenza vaccination Influenz a Vaccine (Season Ended) [facility] Start: 10-12-2023 Covid-19 Vaccine ( season) Covid-19 Vaccine ( season) [facility] Start: 10-12-2023 Influenza vaccination Influenza Vacc ine (#1) [facility] Start: 2022 Screening for malign ant neoplasm of breast Mammogram [facility] Start: 09-11-2022 History and physical examination, annual for health maintenance Wellness Visit [facility] Start: 09-11-2021 Patient referral [facility] Work Phone: Start: 10-11-2020 Influenza vaccination Sequenti al Influenza Vaccine (#1) [facility] Start: 10-01-2020 Diabetes Screening Diabetes Screenin g [facility] Start: 10-12-2019 Influenza vaccinatio n given [facility] Start: 04-15-2019 End: 04-15-2019 Office Visit 04/15/2019 Office Visit Neurosurgery Bobby Hernandez MD [address] [place] [address] [phone] [facility] Start: 10-11-2018 Influenza vaccinatio n given SEQUENTIAL INFLUENZA VACCINE (#1) [facility] Start: 12-04-2017 End: 12-04-2017 Ambulatory 12/04/2017 Procedure visit Cardiology Jolie Daniels III, [address] [place] [address] [phone] [facility] Start: 10-11-2017 Influenza vaccination SEQUENTI AL INFLUENZA VACCINE (Season Ended) [facility] Start: 02-07-2017 Ambulatory 02/07/2017 Hos pital Encounter Vlad Jenkins MD [address] [place] [address] [phone] [facility] Start: 10-14-2013 Screening for malign ant neoplasm of breast Mammogram Screening [facility] Start: 10-10-2011 Administration of he rpes zoster vaccine Zoster Vaccines (1 of 2) [facility] Start: 10-10-2011 Pneumococcal Vaccine : Age 50+ (1 of 1 - PCV) Pneumococcal Vaccine: Age 50+ (1 of 1 - PCV) [facility] Start: 10-10-2011 Screening for malign ant neoplasm of colon [facility] Start: 10-10-2011 Shingrix Vaccine (1 of 2) Shingrix Vaccine (1 of 2) [facility] Start: 2006 Lipid panel Lipid Screening [facility] Start: 2006 Screening for malign ant neoplasm of colon [facility] Start: 2001 Screening for malign ant neoplasm of breast Mammogram [facility] Start: 1980 Urine microalbumin profile DTaP,Tdap,Td Vaccine (1 - Tdap) [facility] Start: 10-10-1979 Anxiety Screening Anxiety Screening [facility] Start: 10-10-1979 Depression Screening Depression Scre ening [facility] Start: 10-10-1979 Hepatitis C antibody , confirmatory test Hepatitis C Screening [facility] Start: 10-10-1979 Hepatitis C screening Hepatitis C Sc reening [facility] Start: 10-10-1979 HIV screening HIV Screening [facility] Start: 1977 COVID-19 Vaccine (1 of 2) COVID-19 Vaccine (1 of 2) [facility] Start: 1976 HIV screening HIV Screening [facility] Start: 1973 Adolescent depressio n screening assessment Depression Screening (PHQ9) [facility] Start: 1973 Depression screening using PHQ-9 (Patient Health Questionnaire 9) score [facility] Start: 1964 History and physical examination, annual for health maintenance Wellness Visit [facility] Start: 1961 Depression screening using PHQ-9 (Patient Health Questionnaire 9) score Depression Screening (PHQ9) [facility] Start: 1961 Hepatitis C antibody , confirmatory test HEPATITIS C SCREENING [facility] Start: 1961 Screening for malign ant neoplasm of colon [facility] Start: 1961 Screening mammography Mammogram [facility] Start: 1961 HEPATITIS C SCREENING HEPATITIS C [facility] Start: 1961 Screening colonoscopy COLONOSCOPY [facility] Start: 1961 End: 1961 Screening for malignant neoplasm of cervix PAP SMEAR [facility] Start: 1961 End: 1961 Tetanus vaccination [facility] Bacteria identified in Urine by Culture URINE CULTURE Microbiology Routine Urinary frequency Ordered: 01/13/2024 [facility] Work Phone: Comment on above: Ordered: 01/13/2024 BLADDER SUSPENSION TRANSOBTURATOR BLADDER SUSPENSION TRANSOBTURATOR IBAN (stress urinary incontinence, female) [facility] Main OR DXA Bone [Mass/Area] Bone density [facility] Work Phone: MG Breast - bilatera l Screening [facility] Work Phone: End: 07-19-2025 MR Hip - right WO contrast MR Hip Right Without Contrast Imaging Routine Tear of right acetabular labrum, initial encounter 1 Occurrences starting 07/19/2024 until 07/19/2025 [facility] Work Phone: Comment on above: 1 Occurrences starti ng 07/19/2024 until 07/19/2025 Patient referral [facility] Work Phone: Immunizations Immunization Date Immunization Notes Care Provider Fa cility 06-09-2020 Nuria ([employer]) Dr. Martinez Galeana Work Phone: [facility] 12-09-2006 influenza virus vaccine, unspecified formulation Rosa Maria Kerr APRN.CNP Work Phone: [facility] Payers Date Payer Category Payer Managed Care (privat e) or private health insurance (indemnity), not otherwise specified [employer] [id number] 07-11-2024 Private Health Insurance [id number] 02-12-2024 Self-pay [id number] 02-12-2024 Unknown [id number] 09-11-2023 Private Health Insurance [facility] UMR CHOICE PLUS [id number] 09/11/2023-Present [phone] [address] [address] [place] [address] HMO [id number] 09-11-2023 Unknown [id number] 02-10-2019 Unknown ANTHEM ANTHEM BLUE/PREF/HMO/PPO [id number] 2019-Present [id number] 02-10-2019 Unknown ANTHEM ANTHEM BLUE/PREF/HMO/PPO [id number] 02/10/2019-Present [id number] 02-10-2019 Unknown ANTHEM ANTHEM BLUE/PREF/HMO/PPO [id number] 02/10/2019-Present [phone] [address] [place] [address] [id number] 02-10-2019 Unknown [id number] 05-05-2017 Unknown [id number] 02-11-2016 Unknown [id number] 1960 Unknown [id number] 1961 Unknown [id number] 1961 Unknown [id number] 1961 Unknown [id number] 1961 Unknown [id number] 1961 Unknown [id number] Self-pay [id number] Unknown [id number] Unknown [id number] Unknown [id number] Unknown [id number] Unknown [id number] Unknown [id number] Unknown [id number] Unknown [id number] Social History Date Type Detail Facility Start: 06-16-2017 End: 07-10-2021 Tobacco smoking status NHIS Never smoker [facility] Start: 1960 Sex Assigned At Not on file [facility] Work Phone: Start: 02-06-2017 End: 09-11-2021 Tobacco smoking status ILIS Unknown if ever smoked [facility] Start: 03-02-2019 End: 01-13-2024 Alcohol intake Current drinker of alcohol (finding) [facility] Start: 06-16-2017 Alcohol Comment SOCIAL [facility] Start: 04-15-2021 End: 04-25-2021 Exposure to SARS-CoV-2 (event) Not sure [facility] Start: 06-24-2019 End: 07-10-2021 Tobacco use and exposure Never used [facility] Start: 06-16-2017 History SDOH Alcohol Comment SOCIAL [facility] Start: 04-04-2021 History SDOH Alcohol Comment SOCIAL - weekends [facility] Start: 1960 Sex Assigned At Female [facility] Start: 01-13-2024 End: 07-21-2024 History of Social function [facility] Start: 01-13-2024 End: 07-21-2024 Tobacco use panel [facility] National Score (1-10 0), lower number is lower risk Not on file [facility] Start: 07-21-2024 Alcoholic beverage intake Ex-drinker (finding) [facility] Start: 06-23-2019 Gender identity Identifies as female gender (finding) [facility] Start: 06-23-2019 Sexual orientation Heterosexual (finding) [facility] Medical Equipment Procedure Code Equipment Code Equipment Origin al Text Equipment Identifier Dates System Sling Obtryx Curved - Sn/A [id number], [id number] Start: 04-09-2021 Comment on above: Description: Memeu parmjit Clinical Notes 03-05-2021 to 07-20-2024 Tod Monzon, [facility] - 07/20/2024 1:10 PM Rosa Maria Sánchez APRN.[facility] - 01/13/2024 5:50 PM Lauryn Tirado MD - 04/29/2021 4:04 PM Carolynn Tirado MD - 03/05/2021 1:56 PM EST Note Date & Type Note Facility 07-20-2024 Note [facility] [address] [facility] [address] [facility] [id number] Chief Complaint Patient presents with Right Hip - Pain Trena Rodríguez returns to the office today for right hip pain. She denies any injury. She reports that she continues to have pain in the groin. She has been utilizing OTC pain medications without significant relief. She does work third shift within [employer] and states that by the time she is done with her shift, she is in quite a bit of pain. It we will improve when she is able to sit but especially with certain movements and motions with work, the pain gets worse. She denies any pain that radiates down the leg into the foot or the toes. She also denies any numbness or tingling down that leg into the foot or the toes. The patient's past medical history, surgical history, social history, family history, medications and allergies were reviewed with the patient today and are available in the chart for further review. Allergies[1] Current Medications[2] Past Medical History: Diagnosis Date Anxiety Depression Heart murmur Hypertension Varicose veins of bilateral lower extremities with pain Past Surgical History: Procedure Laterality Date BLADDER SUSPENSION TRANSOBTURATOR N/A 04/09/2021 Procedure: BLADDER SUSPENSION TRANSOBTURATOR; Surgeon: Diaz Tirado MD; Location: [facility] OR; Service: OBGYN BLEPHAROPLASTY UPPER / LOWER Bilateral 07/10/2021 Procedure: BILATERAL 4 LID BLEPHAROPLASTY; Surgeon: Leilani Cutler DO; Location: [facility] [place] OR; Service: Plastics REFRACTIVE SURGERY Bilateral 2018 SCLERATHERPY Bilateral 2015 Social History[3] ROS: Review of Systems Musculoskeletal: Positive for arthralgias, gait problem and myalgias. Negative for joint swelling. ORTHO: Right Hip Exam Tenderness The patient is experiencing tenderness in the greater trochanter and anterior. Range of Motion External rotation: 40 (with sharp pain in groin) Internal rotation: 20 (with pain in groin) Muscle Strength The patient has normal right hip strength. Tests KALIA: positive Janene: negative Other Erythema: absent Scars: absent Sensation: normal Pulse: present Imaging: R Hip: No acute fracture or dislocation. Mild degenerative changes of the hip. Lumbar: No acute fracture or dislocation. Mild spondylosis. Emhj-iy-fqnibtaz facet osteoarthropathy Assessment/Plan: After examination and reviewing of the patient x-ray images, I am ordering a MRI of that right hip for further diagnostic evaluation. The relatively benign x-ray images really are not correlating with the findings on physical exam. She is to continue with any OTC pain medications as needed. I am having her start a short course of oral steroids and then I would like her to try some meloxicam to see if this would ease her symptoms at all. I will see her back in the office to review the results of the MRI. [1] No Known Allergies [2] Current Outpatient Medications: lisinopriL-hydrochlorothiazide (PRINZIDE,ZESTORETIC) 10-12.5 mg per tablet, Take 1 tablet by mouth daily Morning ., Disp: , Rfl: sertraline (ZOLOFT) 50 MG tablet, Take 50 mg by mouth daily Morning ., Disp: , Rfl: meloxicam (MOBIC) 15 MG tablet, Take 1 (one) tablet (15 mg total) by mouth daily ., Disp: 30 tablet, Rfl: 11 predniSONE (DELTASONE) 50 MG tablet, Take 1 (one) tablet (50 mg total) by mouth daily ., Disp: 5 tablet, Rfl: 0 [3] Social History Socioeconomic History Marital status: Tobacco Use Smoking status: Never Smokeless tobacco: Never Vaping Use Vaping status: Never Used Substance and Sexual Activity Alcohol use: Not Currently Comment: SOCIAL - weekends Drug use: Yes Types: Marijuana Comment: last use 07/09/2021 AUTHENTICATED BY TOD MONZON, ON 07/21/2024 15:38:11 [facility] 07-20-2024 History of Present illness Narrative [facility] [address] [facility] [address] [facility] [id number] Chief Complaint Patient presents with Right Hip - Pain Trena Rodríguez returns to the office today for right hip pain. She denies any injury. She reports that she continues to have pain in the groin. She has been utilizing OTC pain medications without significant relief. She does work third shift within [employer] and states that by the time she is done with her shift, she is in quite a bit of pain. It we will improve when she is able to sit but especially with certain movements and motions with work, the pain gets worse. She denies any pain that radiates down the leg into the foot or the toes. She also denies any numbness or tingling down that leg into the foot or the toes. The patient's past medical history, surgical history, social history, family history, medications and allergies were reviewed with the patient today and are available in the chart for further review. Allergies[1] Current Medications[2] Past Medical History: Diagnosis Date Anxiety Depression Heart murmur Hypertension Varicose veins of bilateral lower extremities with pain Past Surgical History: Procedure Laterality Date BLADDER SUSPENSION TRANSOBTURATOR N/A 04/09/2021 Procedure: BLADDER SUSPENSION TRANSOBTURATOR; Surgeon: Diaz Tirado MD; Location: [facility] OR; Service: OBGYN BLEPHAROPLASTY UPPER / LOWER Bilateral 07/10/2021 Procedure: BILATERAL 4 LID BLEPHAROPLASTY; Surgeon: Leilani Cutler DO; Location: [facility] [place]; Service: Plastics REFRACTIVE SURGERY Bilateral 2017 SCLERATHERPY Bilateral 2015 Social History[3] ROS: Review of Systems Musculoskeletal: Positive for arthralgias, gait problem and myalgias. Negative for joint swelling. ORTHO: Right Hip Exam Tenderness The patient is experiencing tenderness in the greater trochanter and anterior. Range of Motion External rotation: 40 (with sharp pain in groin) Internal rotation: 20 (with pain in groin) Muscle Strength The patient has normal right hip strength. Tests KALIA: positive Janene: negative Other Erythema: absent Scars: absent Sensation: normal Pulse: present Imaging: R Hip: No acute fracture or dislocation. Mild degenerative changes of the hip. Lumbar: No acute fracture or dislocation. Mild spondylosis. Wsgb-oi-[id number] facet osteoarthropathy Assessment/Plan: After examination and reviewing of the patient x-ray images, I am ordering a MRI of that right hip for further diagnostic evaluation. The relatively benign x-ray images really are not correlating with the findings on physical exam. She is to continue with any OTC pain medications as needed. I am having her start a short course of oral steroids and then I would like her to try some meloxicam to see if this would ease her symptoms at all. I will see her back in the office to review the results of the MRI. [1] No Known Allergies [2] Current Outpatient Medications: lisinopriL-hydrochlorothiazide (PRINZIDE,ZESTORETIC) 10-12.5 mg per tablet, Take 1 tablet by mouth daily Morning ., Disp: , Rfl: sertraline (ZOLOFT) 50 MG tablet, Take 50 mg by mouth daily Morning ., Disp: , Rfl: meloxicam (MOBIC) 15 MG tablet, Take 1 (one) tablet (15 mg total) by mouth daily ., Disp: 30 tablet, Rfl: 11 predniSONE (DELTASONE) 50 MG tablet, Take 1 (one) tablet (50 mg total) by mouth daily ., Disp: 5 tablet, Rfl: 0 [3] Social History Socioeconomic History Marital status: Tobacco Use Smoking status: Never Smokeless tobacco: Never Vaping Use Vaping status: Never Used Substance and Sexual Activity Alcohol use: Not Currently Comment: SOCIAL - weekends Drug use: Yes Types: Marijuana Comment: last use 07/09/2021 documented in this encounter [facility] 01-13-2024 Note HNO ID: [id number] Author: ROSA MARIA KERR APRN.[place] Service: ? Author Type: Nurse Practitioner Type: Progress Notes Filed: 01/13/2024 17:52 Note Text: CC: Patient presents with: Urinary Frequency: burning with urination x 4 days HPI Trena Rodríguez is a 63 year old female who presents with complaint of possible UTI. These symptoms have been present for 4 days. Associated symptoms: burning, frequency, and pressure Denies: fever, chills, sweats, abdominal pain, and flank pain Treatments: azo The ROS was otherwise negative. PMH, Medications, labs, allergies, and recent past visits with PCP were reviewed and updated as able. 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 MEDICATIONS lisinopril-hydrochlorothiazide (PRINZIDE,ZESTORETIC) 10-12.5 mg per tablet Take 1 tablet by mouth once daily. Benzonatate 200 mg capsule Take 1 capsule by mouth three times daily as needed. (Patient not taking: Reported on 09/29/2018 ) albuterol HFA (PROAIR HFA) 90 mcg/actuation inhaler Inhale 2 Puffs as instructed every 4 hours as needed. (Patient not taking: Reported on 09/29/2018 ) FAMILY HISTORY Problem Relation Age of Onset Diabetes Mother Diabetes Maternal Grandmother Hypertension Mother Social History Tobacco Use Smoking status: Never Smokeless tobacco: Never Substance Use Topics Alcohol use: Yes Comment: occasional Drug use: No ASSESSMENT/PLAN: 1. Urinary frequency - ICD9: 788.41, ICD10: R35.0 (primary diagnosis) - UA DIP, URINE (POC) - URINE CULTURE 2. Acute cystitis without hematuria - ICD9: 595.0, ICD10: N30.00 - NITROFURANTOIN MONOHYDRATE AND MACROCRYSTAL 100 MG ORAL CAP Prescription instructions reviewed with patient as applicable. Potential red flag symptoms discussed with the patient. Reviewed appropriate action plan to take if red flag symptoms occur. Patient agreeable to treatment plan. Rosa Maria Kerr APRN.[facility] 01-13-2024 History of Present illness Narrative CC: Patient presents with: Urinary Frequency: burning with urination x 4 days HPI Trena Rodríguez is a 63 year old female who presents with complaint of possible UTI. These symptoms have been present for 4 days. Associated symptoms: burning, frequency, and pressure Denies: fever, chills, sweats, abdominal pain, and flank pain Treatments: azo The ROS was otherwise negative. PMH, Medications, labs, allergies, and recent past visits with PCP were reviewed and updated as able. PHYSICAL EXAM: BP 142/90 Pulse 70 Temp 36.1 C (96.9 F) Resp 16 Wt 64.1 kg (141 lb 5 oz) LMP 09/23/2012 SpO2 97% General: Well appearing and alert CV: Regular rate and rhythm without obvious murmur Lungs: clear to auscultation bilaterally Back: straight and symmetric Abdomen: soft, nontender, nondistended PAST MEDICAL HISTORY Diagnosis Date Dysplasia of cervix, unspecified PAST SURGICAL HISTORY Procedure Laterality Date LEEP PROCEDURE (AIR ANALYST DEPT)_*FL 1998 CARCINOMA IN SITU ALLERGIES Patient has no known allergies. MEDICATIONS lisinopril-hydrochlorothiazide (PRINZIDE,ZESTORETIC) 10-12.5 mg per tablet Take 1 tablet by mouth once daily. Benzonatate 200 mg capsule Take 1 capsule by mouth three times daily as needed. (Patient not taking: Reported on 09/29/2018 ) albuterol HFA (PROAIR HFA) 90 mcg/actuation inhaler Inhale 2 Puffs as instructed every 4 hours as needed. (Patient not taking: Reported on 09/29/2018 ) FAMILY HISTORY Problem Relation Age of Onset Diabetes Mother Diabetes Maternal Grandmother Hypertension Mother Social History Tobacco Use Smoking status: Never Smokeless tobacco: Never Substance Use Topics Alcohol use: Yes Comment: occasional Drug use: No ASSESSMENT/PLAN: 1. Urinary frequency - ICD9: 788.41, ICD10: R35.0 (primary diagnosis) - UA DIP, URINE (POC) - URINE CULTURE 2. Acute cystitis without hematuria - ICD9: 595.0, ICD10: N30.00 - NITROFURANTOIN MONOHYDRATE & MACROCRYSTAL 100 MG ORAL CAP Prescription instructions reviewed with patient as applicable. Potential red flag symptoms discussed with the patient. Reviewed appropriate action plan to take if red flag symptoms occur. Patient agreeable to treatment plan. Rosa Maria Kerr APRN.[place] documented in this encounter [facility] 04-29-2021 History of Present illness Narrative Subjective Patient ID: Trena Rodríguez is a 60 y.o. female. Here for post op check after having TOT for IBAN. Denies complaints today. The following portions of the patient's history were reviewed and updated as appropriate: allergies, current medications, past family history, past medical history, past social history, past surgical history and problem list. Review of Systems Constitutional: Negative for appetite change and fever. HENT: Negative for nosebleeds. Eyes: Negative for photophobia. Respiratory: Negative for cough and shortness of breath. Cardiovascular: Negative for chest pain and leg swelling. Gastrointestinal: Negative for abdominal pain, constipation, diarrhea, nausea and vomiting. Endocrine: Negative for cold intolerance and polydipsia. Genitourinary: Negative for difficulty urinating, dysuria, frequency and urgency. Musculoskeletal: Negative for joint swelling. Skin: Negative for rash. Neurological: Negative for dizziness. Hematological: Does not bruise/bleed easily. Psychiatric/Behavioral: Negative for suicidal ideas. All other systems reviewed and are negative. Objective Physical Exam Constitutional: Appearance: She is well-developed. Pulmonary: Effort: Pulmonary effort is normal. Abdominal: Palpations: Abdomen is soft. Musculoskeletal: General: Normal range of motion. Skin: General: Skin is warm and dry. Neurological: Mental Status: She is alert and oriented to person, place, and time. Psychiatric: Behavior: Behavior normal. Thought Content: Thought content normal. Judgment: Judgment normal. Assessment/Plan: Diagnoses and all orders for this visit: IBAN (stress urinary incontinence, female) Postoperative visit Doing well post op without complaints. Denies any bleeding or spotting. Minimal discharge noted. Has noticed significant improvement in leaking since surgery. May resume normal activity, recheck at annual exam. documented in this encounter [facility] 03-05-2021 History of Present illness Narrative Subjective Patient ID: Trena Rodríguez is a 60 y.o. female. New patient here with complaints of leaking urine with cough, sneeze or straining. She has some urgency symptoms but not bothersome. This has been going on for several years. She will have to change clothes on occasion due to leaking. She notices if she has a full bladder it takes less effort to leak. The following portions of the patient's history were reviewed and updated as appropriate: allergies, current medications, past family history, past medical history, past social history, past surgical history and problem list. Review of Systems Constitutional: Negative for appetite change and fever. HENT: Negative for nosebleeds. Eyes: Negative for photophobia. Respiratory: Negative for cough and shortness of breath. Cardiovascular: Negative for chest pain and leg swelling. Gastrointestinal: Negative for abdominal pain, constipation, diarrhea, nausea and vomiting. Endocrine: Negative for cold intolerance and polydipsia. Genitourinary: Positive for urgency. Negative for difficulty urinating, dysuria and frequency. Urinary incontinence Musculoskeletal: Negative for joint swelling. Skin: Negative for rash. Neurological: Negative for dizziness. Hematological: Does not bruise/bleed easily. Psychiatric/Behavioral: Negative for suicidal ideas. All other systems reviewed and are negative. Objective Physical Exam Constitutional: Appearance: She is well-developed. Pulmonary: Effort: Pulmonary effort is normal. Musculoskeletal: General: Normal range of motion. Skin: General: Skin is warm and dry. Neurological: Mental Status: She is alert and oriented to person, place, and time. Psychiatric: Behavior: Behavior normal. Thought Content: Thought content normal. Judgment: Judgment normal. 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 Discussed bladder health, tips to reduce urgency and leaking. We discussed a TOT for correction of the Stress Urinary incontinence. Risks, benefits and alternatives were discussed. We will place a request and proceed with the planned procedure. documented in this encounter [facility] Evaluation note Diagnosis IBAN (stress urinary incontinence, female)- [facility] IBAN (stress urinary incontinence, female)- Primary [facility] Diagnosis Onset Date Resolution Status Encounter for preventative a dult health care examination acute COVID noneactive Acute sinusitis noneactive [facility] Work Phone: Evaluation noteNo assessment information available [facility] Work Phone: Evaluation note* Diagnosis Urinary frequency- Primary Acute cystitis without hematuria Acute [facility]stitis [facility] Preop examination Unspecified pre-operative examination Primary hypertension Unspecified essential hypertension Anxiety and depression IBAN (stress urinary incontinence, female) Tear of right acetabular labrum, initial encounter- Primary [facility] Assessments Diagnosis Spider veins - Primary Abrasion of left ankle witho ut infection, initial encounter Diagnosis Cervical spondylosis without myelopathy Herniation of cervical intervertebral disc with radiculopathy Essential hypertension Unspecified essential hypertension Diagnosis Trigger finger of left thumb Summary Purpose Family History No Family History Records Found Relationship Condition Age at Onset Recorded Date/T husam mother Arthritis Unknown Cardiac disease Unknown Hypertension Unknown Kidney disorder Unknown grandfather Myocardial infarction Unknown Advance Directives No Advanced Directives Records FoundDocuments on File Type Date Recorded 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 Advance Directives and Living Will Documents on File Type Date Recorded 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 Advance Directives and Living Will Documents on File Type Date 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 Advance Directives and Livin g Will 04/09/2021 6:10 AM Latest Code Status on File Code Status Date Activated Date Inactivated Comments Full Code 04/09/2021 8:07 AM 04/09/2021 12:24 PM Date Activated Date Inactivated Comments 07/10/2021 9:21 AM 07/10/2021 12:29 PM Date Activated Date Inactivated Comments 04/09/2021 8:07 AM 04/09/2021 12:24 PM Reason for Referral Status Reason Specialty Diagnoses / Procedures Referred By Contact Referred To Contact Authorized Rehabilitation Diagnoses Cervical spondylosis without myelopathy Bobby Hernandez MD [address] [place] [id number] History of Present Illness * Bobby Hernandez MD - 03/02/2019 2:45 PM EST Chief Complaint Patient presents with Consult Neck Pain Pain goes from neck into L shoulder and down her arm and makes her whole Left hand go numb. The pain seems to mostly in the L shoulder and down the L arm. Neck and left shoulder pain. HPI I am asked by Dr. Martinez Galeana to provide neurosurgical evaluation and consultation on Trena Rodríguez. Trena is a 58-year-old female who has been in excellent health in terms of her spine until November 2018. Without any provoking event or known trauma she started to develop the left posterior paracervical pain that radiate into the left shoulder arm forearm and was associated then with a numbnessof the entire left hand. The pain became as high as an 8 on the VAS score and was constant as November turned in December. She did try chiropractic manipulation as well as acupuncture but these only gave her some temporary transient relief. Inversion table also gave her only relief. She does not take medications as she is quite averse to them. She denies any weakness of her left upper extremity. She is right-handed. Pain is exacerbated by rotating the head towards the left as well as extension of the neck. She denied any difficulty with the right side at any time. She also denies any difficulty with ambulation. As part of her work-up an MRI of the cervical spine was performed on 01/22/2019. Of independent reviewed the study and a computerized workstation. My interpretation is that there andres retrolisthesis of C5 in relation to a C6 of approximately 2 mm. There is degenerative disc disease at C5-6 and C6-7 with a space height loss. At the C5-C6 level there is a central broad-based disc h erniation with no significant central canal stenosis or foraminal stenosis. At C6-C7 there is a moderate sized left paramedian disc herniation causing a moderate lateral recess stenosis at left C6-C7with accompanying left foraminal stenosis. There is mild central canal stenosis. There is no evidence of fracture or dislocation of the cervical spine. There is no evidence of Chiari malformation. Signal intensity within the spinal cord is normal. The patient denies any change in bowel or bladder habits. She states that over the past few weeks however her pain is markedly improved and she attributes this to potentially to decreased activity during the holiday season. 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 She has not had to miss any work because of the pain. The pain reached its maximum in December early January 2019 where she had to resort to driving with her left arm elevated and her elbow bent placed behind her head in order to obtain relief. Review of Systems Positive for hypertension. Negative for smoking. Negative for coronary disease. Negative for lung dysfunction. Physical Exam Awake alert oriented pleasant female in no obvious acute distress. Speech and language function normal. Recent and remote memory is intact. Gait and station normal. No abnormal motor moves extremities. Pupils are 6 to 3 mm equal round react to light. No pronator drift. No tremor of the extremities.Face is symmetric. No numbness of the face arms hands or any of the fingers of either extremity. Light touch is intact in the bilateral lower extremities. No gait ataxia. Romberg sign is negative. Power at the deltoid bicep triceps wrist extensor flexor interosseous 5 out of 5 and equal muscles tested. Power at the iliopsoas glutei quadricep hamstrings hip abductor's hip adductor's and dorsi and plantar flexion of the feet are 5-5 nuchal muscle groups tested. No winging of the scapula is noted.She has full range of motion to head neck. Extension flexion rotation of the neck demonstrates no reproducible pain and negative Spurling sign. Muscle bulk and tone is normal. Lungs good agitation. Carotid pulses 2+3 and equal. No carotid bruits. Deep tendon reflex of the biceps triceps and brachioradialis are 1+ and equal, patella and Achilles 1+ and equal. No ankle clonus. No jugular venous distention. No pedal or pretibial edema. No calf swelling or tenderness. Inpression: Cervical disc herniation C5-6 and C6-7 with symptomatic herniation left C6-7. Plan The patient has demonstrated some significant improvement spontaneously despite not having much of any conservative care being performed on a routine basis. I believe physical therapy in a supervisedfashion would be cantu to helping her improve yet further. The patient wishes to avoid any form of drug therapy and I will abide by her wishes. I am placing her into a supervised therapy program and I will see her back in 4 weeks to assess her progress. If she should have an exacerbation of pain or relapse she is welcome to come back at any time. Bobby Hernandez MD documented in this encounter* Tod Monzon, [place] - 06/23/2019 11:34 AM EDT Associated Order(s): Tendon Sheath Injection: Flexor Tendon Sheath Post-Procedure Diagnose(s): Trigger finger of left thumb Tendon Sheath Injection: Flexor Tendon Sheath Performed by: Tod Monzon CNP Authorized by: Tod Monzon CNP Consent given by: Patient Time out: Immediately prior to the procedure a time out was called Physician or proceduralist has discussed critical or nonroutine steps, procedure duration and anticipated blood loss: Yes Indications: Pain and diagnostic evaluation Location: Thumb Laterality: Left Prep: patient was prepped and draped in usual sterile fashion Needle size: 25 G Medications: 40 mg triamcinolone acetonide 40 mg/mL Anesthetic used: Lidocaine 1% Anesthetic amount (mL): 1 Patient tolerance: Patient tolerated the procedure well with no immediate complications * Tod Monzon CNP - 06/23/2019 11:20 AM EDT [facility] [address] [address] [facility] [id number] Chief Complaint Patient presents with Left Hand - Pain Possible trigger thumb Trena Rodríguez, 58 year old female presents to the office today for pain and catching of the left thumb. About 6 months ago, the thumb started catching when she tried to use it or open her hand. She complains of tenderness at the base of the thumb and feels as though there is a knot in there. She is right handed. The left hand has decreased strength due to the catching and pain in the thumb. She did go to her PCP who told her that she had a trigger thumb. She then made an appt to have it evaluated by orthopedics. The patient's past medical history, surgical history, social history, family history, medications and allergies were reviewed with the patient today and are available in the chart for further review. No Known Allergies Current Outpatient Medications: lisinopril (PRINIVIL,ZESTRIL) 2.5 MG tablet, Take 2.5 mg by mouth daily ., Disp: , Rfl: Past Medical History: Diagnosis Date Hypertension Varicose veins of bilateral lower extremities with pain Past Surgical History: Procedure Laterality Date SCLERATHERPY Bilateral 2015 Social History Socioeconomic History Marital status: Spouse name: Not on file Number of children: Not on file Years of education: Not on file Highest education level: Not on file Occupational History Not on file Social Needs Financial resource strain: Not on file Food insecurity Worry: Not on file Inability: Not on file Transportation needs Medical: Not on file Non-medical: Not on file Tobacco Use Smoking status: Never Smoker Smokeless tobacco: Never Used Substance and Sexual Activity Alcohol use: Yes Comment: SOCIAL Drug use: Yes Types: Marijuana Sexual activity: Not on file Lifestyle Physical activity Days per week: Not on file Minutes per session: Not on file Stress: Not on file Relationships Social connections Talks on phone: Not on file Gets together: Not on file Attends scientologist service: Not on file Active member of club or organization: Not on file Attends meetings of clubs or organizations: Not on file Relationship status: Not on file Other Topics Concern Not on file Social History Narrative Not on file ROS: Review of Systems Constitutional: Negative for activity change and fatigue. HENT: Negative for congestion, hearing loss and trouble swallowing. Eyes: Negative for visual disturbance. Respiratory: Negative for chest tightness and shortness of breath. Cardiovascular: Negative for chest pain and palpitations. Gastrointestinal: Negative for abdominal pain, diarrhea, nausea and vomiting. Endocrine: Negative for polydipsia, polyphagia and polyuria. Genitourinary: Negative for decreased urine volume, difficulty urinating and hematuria. Musculoskeletal: Positive for arthralgias. Negative for joint swelling and myalgias. Skin: Negative for color change, rash and wound. Allergic/Immunologic: Negative for immunocompromised state. Neurological: Negative for dizziness, weakness, light-headedness and numbness. Hematological: Does not bruise/bleed easily. Psychiatric/Behavioral: Negative for confusion and sleep disturbance. The patient is not nervous/anxious. PE: Physical Exam Constitutional: She is oriented to person, place, and time. She appears well- developed and well-nourished. HENT: Head: Normocephalic. Eyes: Pupils are equal, round, and reactive to light. Neck: Normal range of motion. Neck supple. Cardiovascular: Normal rate and regular rhythm. Pulmonary/Chest: Effort normal and breath sounds normal. Abdominal: Soft. Bowel sounds are normal. Musculoskeletal: General: Tenderness present. Left hand: She exhibits decreased range of motion, tenderness and bony tenderness. Decreased strength noted. She exhibits thumb/finger opposition. Hands: Neurological: She is alert and oriented to person, place, and time. Skin: Skin is warm and dry. ORTHO: Left Hand Exam Tenderness The patient is experiencing tenderness in the palmar area. Range of Motion Hand MP Thumb: abnormal Muscle Strength Contracts Manager: 4/5 Tests Phalen s Sign: negative Tinel's sign (median nerve): negative Pj's test: positive Other Erythema: absent Scars: absent Sensation: normal Pulse: present Comments: There is catching of the thumb with extension. Imaging: L Hand Tiny separate ossification along the lateral margin of the distal interphalangeal joint of the thumb and the medial margin of the distal interphalangeal joint of the 2nd digit favoring sequela of remote injury. Mild degenerative changes of the 1st carpal-metacarpal joint. Assessment/Plan: After examination and reviewing of the patient x-ray images, I offered the patientan injection to the left thumb for trigger thumb which she gladly accepted. I did inform her that if the injection is not of any benefit then surgical intervention would be necessary to release the trigger thumb. The patient verbalizes understanding and is in agreement with the treatment plan. She will return to the office if there is no improvement or worsening of the symptoms. 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 Reason for Visit Encounter for preven tative adult health care examination COVID Acute sinusitis Chief Complaint SCREENING Additional Source Comments INFORMATION SOURCE (unrecogn ized section and content) DATE CREATED AUTHOR 08/04/2017 [facility] DATE CREATED AUTHOR AUTHOR'S ORGANIZ ATION 07/15/2021 [facility] DATE CREATED AUTHOR AUTHOR'S ORGANIZ ATION 01/15/2024 [facility] DATE CREATED AUTHOR AUTHOR'S ORGANIZ ATION 07/25/2024 [facility] DATE CREATED AUTHOR AUTHOR'S ORGANIZ ATION 08/02/2024 [facility] Reason for Visit (unrecogniz ed section and content) Reason Comments Consult Neck Pain Pain goes from neck into L shoulder and down her arm and makes her whole Left hand go numb. The pain seems to mostly in the L shoulder and down the L arm. 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 Reason Comments Follow-up 2 week f/u, IBAN 04/09 Reason Comments Urinary Frequency burning with urinati on x 4 days Reason Comments Pain Care Teams (unrecognized sec tion and content) Pizza Maker Relationship Specialty Start Date End Date Martinez Galeana DO [address] [place], [place] [id number] PCP - General Family Medicine 06/11/17 Jolie Daniels III, DO Consulting Physician Vascular Surgery 06/16/17 Pizza Maker Relationship Specialty Start Date End Date Martinez Galeana DO [address] [place], [place] [id number] PCP - General Family Medicine 06/11/17 Jolie Daniels III, DO [address] [place] [address] Consulting Physician Vascular Surgery 06/16/17 Team Status: Active Member Role Status Dates Dr. Martinez Galeana DO Family Provider Active [facility] Primary Care Provider A ctive Team Status: Inactive Member Role Status Dates [facility] Primary C are Provider, Attending Provider, Referring Provider Active Alli Sanches JOINT FINISHER, JOINT FINISHER-C Other Provider Active Team Status: Inactive Member Role Status Dates [facility] Primary Care Provider A ctive Alli Sanches VSC, JOINT FINISHER-C Attending Provider, Referring Pro vider Active Pizza Maker Relationship Specialty Start Date End Date Martinez Galeana DO PCP - General Family Medicine 07/11/11 Pizza Maker Relationship Specialty Start Date End Date Alli Sanches CNP [address] [place] [address] [place] [address] PCP - General Nurse Practitioner 11/27/23 Jolie Daniels III, DO [address] [place] [address] Consulting Physician Vascular Surgery 06/16/17 Goals (unrecognized section and content) Goals may be documented in a n alternate sectionGoals may be documented in an alternate sectionGoals may be documented in an alternate sectionGoals may be documented in an alternate section Source Comments (unrecognize d section and content) In the event this informatio n is protected by the Federal Confidentiality of Alcohol and Drug Abuse Patient Records regulations: The Federal rules restrict any use of the information to criminally investigate or prosecute any alcohol or drug abuse patient.[facility] FOR RECORDS PERTAINING TO PATIENTS WHO ARE OR HAVE BEEN ENROLLED IN A CHEMICAL DEPENDENCY/SUBSTANCEABUSE PROGRAM, SOME INFORMATION MAY BE OMITTED. This clinical summary was aggregated from multiple sources. Caution should be exercised in using it in the provision of clinical care. This summary normalizes information from multiple sources, and as a consequence, information in this document may materially change the coding, format and clinical context of patient data. In addition, data may be omitted in some cases. CLINICAL DECISIONS SHOULD BE BASED ON THE PRIMARY CLINICAL RECORDS. [facility] [email or web address] [facility]. provides no warranty or guarantee of the accuracy or completeness of information in this document.
--- NOTE | 2024-08-07 08:45 | MRI_ITS ---
PROCEDURE: LOWER EXT JOINT ONLY (ROUTINE) 08/07/2024 REASON FOR EXAM: TEAR OF RT ACETABULAR LABRUM, INITITAL ENCOUNTER TECHNIQUE: LOWER EXT JOINT ONLY (ROUTINE) Multiplanar and multisequence images were obtained without IV contrast administration. COMPARISON: COMPARISON: none FINDINGS: No obvious glenoid labrum tears. Subcortical pseudocystic changes of the anterosuperior aspect of the right acetabular articular surface. The femoral head and neck on either side are unremarkable. There is no femoral head collapse. The femoroacetabular joints spaces are relatively narrowed. Minimal bilateral hip joint effusion. High signal of the right greater trochanteric bursa. No marrow infiltrative lesions Thickening and insertional high signal of the right gluteus medius and both common hamstring tendons insertion. The rest of the visualized muscles of the hip joints appear normal. No pelvic masses. Normal appearance of the urinary blader. No pathologically enlarged lymph nodes. No pelvic collections. MRI/Lower Ext Joint Only (Routine) IMPRESSION: No obvious glenoid labrum tears. Subcortical pseudocystic changes of the anterosuperior aspect of the right acet abular articular surface, possibly degenerative. Minimal bilateral hip joint effusion with right greater trochanteric bursitis. Right gluteus medius and both common hamstring tendonitis. Reading [facility]
== END | disposition home or self-care (01) ==
LOC: MRI 08:06
PROVIDERS: PCP Nurse Practitioner Family; Referring Provider Nurse Practitioner Gerontology; Visit Provider Nurse Practitioner Gerontology
DX: S73.191A Other sprain of right hip, initial encounter (principal)
CPT/HCPCS: 73721